=== PATIENT | male | born 1935 | race Caucasian/White ===

== ENCOUNTER → 2017-10-02 | Outpatient (CLI) | payer MEDICARE, OTHER ==
[~2017-10-02] MED LIST: BUSPAR15 MG PO; Z.0.ACTONEL150 MG PO; Z.0.BYSTOLIC10 MG PO; Z.0.BYSTOLIC5 MG PO; Z.0.DIOVAN160 MG PO; Z.0.DYAZIDE 37.5-21 PO; Z.0.FLOMAX0.4 MG PO; Z.0.NEXIUM40 MG PO; Z.0.PRADAXA150 MG PO; Z.0.PROSCAR5 MG PO; Z.0.SINGULAIR10 MG PO; Z.0.XYZAL5 MG PO; [UNRECOGNIZED DRUG - OTHER]
--- NOTE | 2017-10-02 14:28 | Diagnostic Imaging Report ---
PROCEDURE:X-RAY MODIFIED BARIUM SWALLOW COMPARISON:None. INDICATIONS:Not provided. DISCUSSION:Fluoroscopic examination was performed in conjunction with speech pathology, during swallowing of a variety of thin and thick liquid consistencies. Examination showed premature spillage over the base of the tongue, vallecula and pyriform sinuses with all consistencies. Penetration into the laryngeal vestibule was noted within liquids. No aspiration. Moderate to severe follicular, and pyriform sinus residue with thin and thick, pure and solid material. Moderate pharyngeal wall residue following swallows of all consistencies. CONCLUSION:Mild to moderate pharyngeal dysphagia. Intermittent penetration to the level of the vocal cords. No aspiration was documented, however, highly suspected. Please see the report from speech pathology for complete details. Livan Nguyen M.D. Dictated by: Livan Nguyen M.D. on 10/02/2017 at 14:35 Electronically approved by: Livan Nguyen M.D. on 10/02/2017 at 14:35
== END ==
LOC: DX 09:32
PROVIDERS: ATTEND Internal Medicine Gastroenterology
DX: R13.10 Dysphagia, unspecified (principal)
CPT/HCPCS: 74230; 92611; G8996; G8997

== ENCOUNTER → 2017-12-24 | Day surgery (SDC) | payer MEDICARE, OTHER ==
[2017-12-19 11:53] LABS: BASOPHILS % 0.2 % (0.0-1.0); EOSINOPHILS # (AUTO) 0.1 (0.0-0.4); EOSINOPHILS % 0.7 % (0.0-6.0); HEMATOCRIT 38.7 % (38.2-49.6); HEMOGLOBIN 13.1 g/dL (14.0-18.0); LYMPHOCYTES # (AUTO) 2.7 (1.0-3.2); LYMPHOCYTES % 17.6 % (18.0-39.1); MEAN CORPUSCULAR HEMOGLOBIN 30.4 pg (28-32); MEAN CORPUSCULAR HGB CONC 33.9 g/dL (31-35); MEAN CORPUSCULAR VOLUME 89.8 fL (81-99); MONOCYTES # (AUTO) 1.4 (0.2-0.8); NEUTROPHILS # (AUTO) 10.6 (2.1-6.9); NEUTROPHILS % 69.5 % (38.7-80.0); PLATELET COUNT 227 x10e3/uL (140-360); RED BLOOD COUNT 4.31 x10e6/uL (4.3-5.7); RED CELL DISTRIBUTION WIDTH 14.2 % (11.7-14.4)
[~2017-12-24] MED LIST changes: +ARNUITY ELLIPTA PO; +BELSOMRA PO; +BUDESONIDE EC3 MG PO; +CITRACAL + D E1 EACH PO; +DICYCLOMINE HCL10 MG PO; +FENTANYL CITRATE/PF 100MCG/2 ML INJ ONE; +FISH OIL 1,0001 EAC2 PO; +FLUTICASONE PRO16 GM; +LIDOCAINE HCL 2% LOCAL INJ 5 ML SDV VIAL INJ ONE; +MELATONIN 5 MG1 EAC1 PO; +NIFEDIPINE ER30 M1 PO; +PENTASA500 MG PO; +PROPOFOL IV EMULSION 10 MG/ML 50 ML VIAL ONE; +SOTALOL80 MG PO; +SPIRIVA18 MCG INH; +UNKOWN ABX PO
--- OUTSIDE RECORDS SUMMARY | 2017-12-24 06:09 | XMS REPORT | Summary of Care ---
Author Author GUILLE POPE M.D. Organization Unknown Address [facility] Phone Unavailable Care Team Providers Care Actuarial Science Professor Name Role Phone GUILLE POPE M.D. 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: Active 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.3, J32.3) Status: Active Medications Name Dates Details Colestipol HCl - 1 GM Oral Tablet Active BusPIRone HCl - 15 MG Oral Tablet * Refills: 0 Active Bystolic 5 MG Oral Tablet * Refills: 0 Active Finasteride 5 MG Oral Tablet * Refills: 0 Active NexIUM 40 MG Oral Capsule Delayed Release * Refills: 0 Active Sotalol HCl (AF) 120 MG Oral Tablet * Refills: 0 Active Triamterene-HCTZ 25-37.5 MG CAPS * Refills: 0 Active Pentasa CPCR * Refills: 0 Active Pradaxa 150 MG Oral Capsule * Refills: 0 Active Valsartan 80 MG Oral Tablet * Refills: 0 Active Montelukast Sodium 10 MG Oral Tablet * Refills: 0 Active Tamsulosin HCl - 0.4 MG Oral Capsule * Refills: 0 Active Levocetirizine Dihydrochloride TABS * Refills: 0 Active Dicyclomine HCl - 10 MG Oral Capsule * Refills: 0 Active Xopenex HFA 45 MCG/ACT Inhalation Aerosol * Refills: 0 Active Silenor TABS * Refills: 0 Active Eszopiclone 3 MG Oral Tablet * Refills: 0 Active Clarithromycin 500 MG Oral Tablet TAKE 1 TABLET EVERY 12 HOURS DAILY. * Quantity: 60 Refills: 0 GUILLE POPE M.D. Start : 04-Dec-2017 Active PredniSONE 10 MG Oral Tablet Take 6 tabs by mouth daily for 2 days then 5 tabs by mouth daily for 2 days then 4 tabs daily by mouth daily for 2 days then 3 tabs by mouth * Quantity: 42 Refills: 0 GUILLE POPE M.D. * Start : 04-Dec-2017 Active Fluticasone Propionate 50 MCG/ACT Nasal Suspension INSTILL 2 SPRAYS IN EACH NOSTRIL EVERY DAY * Quantity: 1 Refills: 4 GUILLE POPE M.D. * Start : 05-Dec-2017 Active 9.9 ML Bottle Allergies and Adverse Reactions Name Dates Details Penicillins (Allergy) Status: Active Past Medical History Name Dates Details History of arthritis (V13.4, Z87.39) Status: Resolved History of asthma (V12.69, Z87.09) Status: Resolved History of Depressive disorder (311, F32.9) Status: Resolved History of hypertension (V12.59, Z86.79) Status: Resolved Procedures Procedure Dates Details CT Sinus w/o contrast with sag recons [id number] Date: 27-Nov-2017 History of Heart Surgery Completed History of Biopsy Of Liver Completed Immunization Name Dates Details Immunizations not documented Family History Name Dates Details Family history of Allergy (995.3, T78.40XA) Comments: Family History Status: Active Social History Name Dates Details - Status: Name Dates Details Never smoker Vital Signs Date Test Result Details [id number] BP Systolic 182 mm[Hg] Status: BP Diastolic 70 mm[Hg] Status: Height 69 in Status: Weight 149 lb Status: Body Mass Index Calculated 22 kg/m2 Status: Body Surface Area Calculated 1.82 m2 Status: Temperature 97.5 f Status: Heart Rate 57 /min Status: 75-Uuz-83384:33 BP Systolic 178 mm[Hg] Status: BP Diastolic 84 mm[Hg] Status: Height 69 in Status: Weight 142 lb Status: Body Mass Index Calculated 20.97 kg/m2 Status: Body Surface Area Calculated 1.79 m2 Status: Heart Rate 54 /min Status: Results Date Description Value Details Results not documented Plan of Care Name Dates Details Planned Observations Planned Goals not documented Planned Encounters Appointment; GUILLE POPE M.D. On: 18-Jan-2018 14:45 Interventions Provided Medication Changes* Clarithromycin 500 MG Oral Tablet - Start * PredniSONE 10 MG Oral Tablet - Start Plan* 1. Will begin Biaxin for 4 weeks, steroid burst taper and continue on the Flonase daily. Fu in 4 weeks. Instructions Name Dates Details Instructions not documented Encounters Appointment; GUILLE POPE M.D. Encounter Diagnosis: Problem not documented On: 21-Jan-2016 8:30 Appointment; GUILLE POPE M.D. Encounter Diagnosis: Problem not documented On: 21-Jul-2016 9:00 Appointment; GUILLE POPE M.D. Encounter Diagnosis: Problem not documented On: 19-Jan-2017 9:30 Appointment; GUILLE POPE M.D. Encounter Diagnosis: Problem not documented On: 20-Jul-2017 9:30 Appointment; GUILLE POPE M.D. Encounter Diagnosis: Problem not documented On: 27-Nov-2017 9:30 Appointment; GUILLE POPE M.D. Encounter Diagnosis: Problem not documented On: 04-Dec-2017 15:45
--- OUTSIDE RECORDS SUMMARY | 2017-12-24 06:09 | XMS REPORT ---
Author Author [facility] Address Unknown Phone Unavailable Care Team Providers Care Outreach Manager Name Role Phone CLAIRE CHAVEZ Unavailable Unavailable Problems This patient has no known problems. Allergies, Adverse Reactions, Alerts This patient has no known allergies or adverse reactions. Medications This patient has no known medications. Results Test Description Test Time Test Comments Text Results Atomic Results Result Comments MODIFIED BA. SWALLOW [place] [address] Patient Name: HELENA MAURO MR #: [id number] : 1935 Age/Sex: 82/M Req #: [id number] Adm Physician: Ordered by: CLAIRE CHAVEZ MD Report #: [id number] Location: DX Room/Bed: Procedure: [id number] DX/MODIFIED BA. SWALLOW Exam Date: 10/02/17 Exam Time: 1000 REPORT STATUS: Signed PROCEDURE: X-RAY MODIFIED BARIUM SWALLOW COMPARISON: None. INDICATIONS: Not provided. DISCUSSION: Fluoroscopic examination was performed in conjunction with speech pathology, during swallowing of a variety of thin and thick liquid consistencies. Examination showed premature spillage over the base of the tongue, vallecula and pyriform sinuses with all consistencies. Penetration into the laryngeal vestibule was noted within liquids. No aspiration. Moderate to severe follicular, and pyriform sinus residue with thin and thick , pur e and solid material. Moderate pharyngeal wall residue following swallows of all consistencies. CONCLUSION: Mild to moderate pharyngeal dysphagia. Intermittent penetration to the level of the vocal cords. No aspiration was documented, however, highly suspected. Please see the report from speech pathology for complete details. Fidelia Nguyen M.D. Dictated by: Fidelia Nguyen M.D. on 10/02/2017 at 14: 35 Electronically approved by: Fidelia Nguyen M.D. on 10/02/2017 at 14:35 Dictated By: FIDELIA NGUYEN MD [id number] Transcribed By: BETHANY on 10/02/17 1435 COPY TO: CLAIRE CHAVEZ MD
[2017-12-24 06:35] LABS: BASOPHILS % 0.2 % (0.0-1.0); EOSINOPHILS # (AUTO) 0.1 (0.0-0.4); EOSINOPHILS % 0.7 % (0.0-6.0); HEMATOCRIT 36.5 % (38.2-49.6); HEMOGLOBIN 12.5 g/dL (14.0-18.0); LYMPHOCYTES # (AUTO) 2.1 (1.0-3.2); LYMPHOCYTES % 17.6 % (18.0-39.1); MEAN CORPUSCULAR HEMOGLOBIN 30.2 pg (28-32); MEAN CORPUSCULAR HGB CONC 34.2 g/dL (31-35); MEAN CORPUSCULAR VOLUME 88.2 fL (81-99); MONOCYTES % 8.6 % (4.4-11.3); NEUTROPHILS # (AUTO) 8.4 (2.1-6.9); NEUTROPHILS % 71.4 % (38.7-80.0); PLATELET COUNT 198 x10e3/uL (140-360); RED BLOOD COUNT 4.14 x10e6/uL (4.3-5.7); RED CELL DISTRIBUTION WIDTH 14.2 % (11.7-14.4)
--- NOTE | 2017-12-25 08:11 | Operative Report ---
DATE OF PROCEDURE: December 24, 2017 PROCEDURE PERFORMED: Esophagogastroduodenoscopy with biopsies and esophageal dilatation. REFERRING PHYSICIAN: Dr. Carloz Kennedy INDICATIONS FOR EGD: Dysphagia to solids. MEDICATION: Patient was done under MAC. Please see anesthesiologist note. PROCEDURE IN DETAIL: With the patient in left lateral decubitus position, flexible fiberoptic Olympus gastroscope was introduced into the esophagus under direct visualization without any difficulty. There was a mild stricture noted in the cervical esophagus just below the upper esophageal sphincter and that was dilated to size 50-[place] Leyva. There was some patchy erythema noted in distal esophagus. The scope was then advanced with ease into the stomach and a moderate amount of retained undigested food was noted in the stomach. An approximately 1-cm polypoid lesion was noted in the body of the stomach and that was biopsied. There was some patchy erythema noted in the antrum and the body, and biopsies were obtained and sent to stain for H. pylori. The pylorus was of normal contour and shape, it was intubated with ease and the scope was advanced all the way to the second portion of the duodenum. The scope was then withdrawn slowly. Mucosa overlying the proximal second portion and the duodenal bulb appeared to be within normal limits. The scope was then withdrawn back into the stomach and retroflexed, and the mucosa overlying the fundus and the cardia appeared to be within normal limits. The scope was then straightened out. The stomach was decompressed. The scope was subsequently withdrawn. Patient tolerated the procedure well. IMPRESSION: 1. 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 2. Gastritis, biopsied. Biopsy sent to stain for Helicobacter pylori. 3. Gastric polyp, approximately 1 cm, body, biopsied. 4. Gastroparesis, reflected by retained undigested food in stomach. PLAN: Follow up histology. Continue Nexium 40 mg 1 p.o. a.c. b.i.d. Job#: [id number] cc:CARLOZ KENNEDY MD
== END | disposition home or self-care (01) ==
LOC: OR 06:07
PROVIDERS: ATTEND Internal Medicine Gastroenterology
DX: K22.2 Esophageal obstruction (principal); K31.7 Polyp of stomach and duodenum; K29.50 Unspecified chronic gastritis without bleeding; K31.84 Gastroparesis; K20.9 Esophagitis, unspecified; K21.9 Gastro-esophageal reflux disease without esophagitis; K44.9 Diaphragmatic hernia without obstruction or gangrene; K58.9 Irritable bowel syndrome, unspecified; R19.7 Diarrhea, unspecified; J45.909 Unspecified asthma, uncomplicated; G47.33 Obstructive sleep apnea (adult) (pediatric); I10 Essential (primary) hypertension; I48.91 Unspecified atrial fibrillation; H91.90 Unspecified hearing loss, unspecified ear; F32.9 Major depressive disorder, single episode, unspecified; F41.9 Anxiety disorder, unspecified; Z01.810 Encounter for preprocedural cardiovascular examination; Z01.812 Encounter for preprocedural laboratory examination; Z79.02 Long term (current) use of antithrombotics/antiplatelets; Z87.442 Personal history of urinary calculi
CPT/HCPCS: 36415 ×2; 43239; 43450; 85025 ×2; 88305; 88312; 93005; J2001

== ENCOUNTER 2018-01-08 14:00 | Outpatient (RCR) | payer MEDICARE, OTHER ==
[~2018-01-08 14:00] MED LIST changes: -FENTANYL CITRATE/PF 100MCG/2 ML INJ ONE; -LIDOCAINE HCL 2% LOCAL INJ 5 ML SDV VIAL INJ ONE; -PROPOFOL IV EMULSION 10 MG/ML 50 ML VIAL ONE
== END 2018-01-12 ==
LOC: ST 14:00
PROVIDERS: ATTEND Internal Medicine Gastroenterology
DX: R13.10 Dysphagia, unspecified (principal)
CPT/HCPCS: 92526 ×6; 92610; G8996; G8997

== ENCOUNTER 2018-01-25 13:00 | Outpatient (RCR) | payer MEDICARE, OTHER | END 2018-02-11 | LOC: ST 13:00 | PROVIDERS: ATTEND Internal Medicine Gastroenterology | DX: R13.13 Dysphagia, pharyngeal phase (principal); K21.9 Gastro-esophageal reflux disease without esophagitis | CPT/HCPCS: 92526 ×5; G8996; G8997 ==

== ENCOUNTER → 2018-02-04 | Outpatient (CLI) | payer MEDICARE, OTHER ==
--- NOTE | 2018-02-04 14:20 | Diagnostic Imaging Report ---
PROCEDURE:X-RAY MODIFIED BARIUM SWALLOW COMPARISON:None. INDICATIONS:Dysphasia. DISCUSSION:Fluoroscopic examination was performed in conjunction with speech pathology, during swallowing of a variety of thin and thick liquid consistencies. CONCLUSION: No penetration or aspiration. Please see the report from speech pathology for complete details. Dictated by: Ck Cool M.D. on 02/04/2018 at 14:21 Electronically approved by: Ck Cool M.D. on 02/04/2018 at 14:21
== END ==
LOC: DX 10:36
PROVIDERS: ATTEND Internal Medicine Gastroenterology
DX: R13.10 Dysphagia, unspecified (principal); K21.9 Gastro-esophageal reflux disease without esophagitis
CPT/HCPCS: 74230; 92611; G8996; G8997; G8998

== ENCOUNTER → 2019-06-04 | Outpatient (CLI) | payer MEDICARE, OTHER ==
[~2019-06-04] MED LIST changes: +AZELASTINE HCL6 ML INH; +COLESTIPOL HCL1 GM PO; +ELIQUIS PO; +FUROSEMIDE40 MG PO; +NEXIUM40 MG PO; +PROAIR HFA INH8.5 GM INH; +PULMICORT90 MCG/AER INH; +SODIUM CHLORIDE3 ML PO
[2019-06-04 10:51] LABS: BASOPHILS % 0.6 % (0.0-1.0); EOSINOPHILS # (AUTO) 0.2 (0.0-0.4); EOSINOPHILS % 2.4 % (0.0-6.0); HEMATOCRIT 23.9 % (38.2-49.6); HEMOGLOBIN 7.4 g/dL (14.0-18.0); LYMPHOCYTES % 16.4 % (18.0-39.1); MEAN CORPUSCULAR HEMOGLOBIN 28.6 pg (28-32); MEAN CORPUSCULAR VOLUME 92.3 fL (81-99); MONOCYTES # (AUTO) 0.6 (0.2-0.8); MONOCYTES % 8.9 % (4.4-11.3); NEUTROPHILS # (AUTO) 4.5 (2.1-6.9); NEUTROPHILS % 71.2 % (38.7-80.0); PLATELET COUNT 284 x10e3/uL (140-360); RED BLOOD COUNT 2.59 x10e6/uL (4.3-5.7); RED CELL DISTRIBUTION WIDTH 14.7 % (11.7-14.4)
== END ==
LOC: LAB 10:30
PROVIDERS: ATTEND Family Medicine
DX: D64.9 Anemia, unspecified (principal)
CPT/HCPCS: 36415; 85025

== ENCOUNTER → 2019-07-08 | Day surgery (SDC) | payer MEDICARE, OTHER ==
[2019-07-01 16:56] LABS: BASOPHILS # (AUTO) 0.1 (0.0-0.1); BASOPHILS % 0.7 % (0.0-1.0); EOSINOPHILS # (AUTO) 0.3 (0.0-0.4); EOSINOPHILS % 4.2 % (0.0-6.0); HEMATOCRIT 35.3 % (38.2-49.6); HEMOGLOBIN 11.4 g/dL (14.0-18.0); LYMPHOCYTES # (AUTO) 1.6 (1.0-3.2); LYMPHOCYTES % 23.1 % (18.0-39.1); MEAN CORPUSCULAR HEMOGLOBIN 29.4 pg (28-32); MEAN CORPUSCULAR HGB CONC 32.3 g/dL (31-35); MONOCYTES # (AUTO) 0.7 (0.2-0.8); MONOCYTES % 9.9 % (4.4-11.3); NEUTROPHILS # (AUTO) 4.3 (2.1-6.9); NEUTROPHILS % 61.1 % (38.7-80.0); PLATELET COUNT 232 x10e3/uL (140-360); RED BLOOD COUNT 3.88 x10e6/uL (4.3-5.7); RED CELL DISTRIBUTION WIDTH 15.3 % (11.7-14.4)
[~2019-07-08] MED LIST changes: +FENTANYL CITRATE/PF 100MCG/2 ML INJ ONE; +PROPOFOL IV EMULSION 10 MG/ML 50 ML VIAL ONE
--- OUTSIDE RECORDS SUMMARY | 2019-07-08 11:06 | XMS REPORT | Continuity of Care Document ---
Author Author [email or web address] Organization [email or web address] Address Unknown Phone Unavailable Care Team Providers Care Brush Polisher Name Role Phone Dympol Information TranscribeMe Unavailable Unavailable Problems Problem Status Onset Date Classification Date Reported Comments Source Nasal congestion 12/07/2017 03/11/2018 [facility] [place] R09.81 - NASAL CONGESTION Active 11/28/2017 [facility] [place] Dysphagia, oropharyngeal phase 11/14/2017 02/15/2018 [facility] [place] Chronic sinusitis, unspecified 03/11/2018 [facility] [place] Chronic sphenoidal sinusitis 02/15/2018 [facility] [place] Chronic frontal sinusitis 02/15/2018 [facility] [place] Chronic maxillary sinusitis 02/15/2018 [facility] [place] Asthma (disorder) Resolved Problem 02/23/2019 [facility] Atrial fibrillation (disorder) Resolved Problem 02/23/2019 [facility] Benign prostatic hypertroph without outflow obstruction (disorder) Resolved Problem 02/23/2019 [facility] Cardiac arrhythmia (disorder) Resolved Problem 02/23/2019 [facility] Deviated nasal septum (disorder) Resolved Problem 02/23/2019 [facility] Diverticulosis of colon Resolved Problem 02/23/2019 [facility] Erectile dysfunction co-occurrent and due to arterial insufficiency (disorder) Resolved Problem 02/23/2019 [facility] Gastric ulcer (disorder) Resolved Problem 02/23/2019 [facility] Gastroesophageal reflux disease (disorder) Resolved Problem 02/23/2019 [facility] Hearing loss (finding) Resolved Problem 02/23/2019 [facility] Hypertensive disorder, systemic arterial (disorder) Resolved Problem 02/23/2019 [facility] Impotence of organic origin (disorder) Resolved Problem 02/23/2019 [facility] Major depressive disorder (disorder) Resolved Problem 02/23/2019 [facility] Reduced libido (finding) Resolved Problem 02/23/2019 [facility] Sleep apnea (finding) Resolved Problem 02/23/2019 [facility] Medications Medication Details Route Status Patient Instructions Ordering Provider Order Date Source finasteride 5 mg oral tablet See Instructions, TAKE 1 TABLET BY MOUTH EVERY DAY, # 90 tab, 4 Refill(s), KWAN, Pharmacy: [facility] [id number] Active 02/20/2019 [facility] tamsulosin 0.4 mg oral capsule 0.4 mg=1 cap, PO, Daily, # 90 cap, 3 Refill(s), Pharmacy: [place] [id number] Active 01/29/2019 [facility] irbesartan 150 mg oral tablet 150 mg=1 tab, PO, Daily, 0 Refill(s) Active 01/29/2019 [facility] apixaban 5 MG Oral Tablet [Eliquis] 5 mg, PO, Q12H, 0 Refill(s) Active 01/29/2019 [facility] Esomeprazole 40 MG Enteric Coated Capsule 40 mg=1 cap, PO, Daily, 0 Refill(s) Active 01/29/2019 [facility] nebivolol 5 MG Oral Tablet [Bystolic] 5 mg=1 tab, PO, Daily, 0 Refill(s) Active 01/29/2019 [facility] fluticasone propionate 55 mcg/inh inhalation powder INHALATION, Q12H, 0 Refill(s) Active 01/29/2019 [facility] dicyclomine 10 mg oral capsule 20 mg=2 cap, PO, QID, 0 Refill(s) Active 01/29/2019 [facility] montelukast 10 mg oral tablet 10 mg=1 tab, PO, Daily, 0 Refill(s) Active 01/29/2019 [facility] Sodium Chloride 0 Refill(s) Active 01/29/2019 [facility] Colestipol Hydrochloride 1000 MG Oral Tablet 2 gm=2 tab, PO, BID, 0 Refill(s) Active 01/29/2019 [facility] Arnuity Ellipta furoate 200 mcg inhalation powder INHALATION, Q24H, 0 Refill(s) Active 01/29/2019 [facility] budesonide 3 mg oral delayed release capsule 9 mg=3 cap, PO, QAM, 0 Refill(s) Active 01/29/2019 [facility] busPIRone 15 mg oral tablet 15 mg=1 tab, PO, BID, 0 Refill(s) Active 01/29/2019 [facility] azelastine NASAL, BID, 0 Refill(s) Active 01/29/2019 [facility] tamsulosin 0.4 mg oral capsule 0.4 mg=1 cap, PO, Daily, 0 Refill(s) Inactive 01/29/2019 [facility] sotalol 160 mg oral tablet 160 mg=1 tab, PO, BID, 0 Refill(s) Active 01/29/2019 [facility] finasteride 5 mg oral tablet 5 mg=1 tab, PO, Daily, 0 Refill(s) Active 01/29/2019 [facility] NIFEdipine 30 mg oral tablet, extended release 30 mg=1 tab, PO, Daily, 0 Refill(s) Active 01/29/2019 [facility] Spiriva 18 microgram, INHALATION, Daily, # 30 ea, 0 Refill(s) Active 01/29/2019 [facility] 120 ACTUAT Budesonide 0.16 MG/ACTUAT Dry Powder Inhaler [Pulmicort] INHALATION, BID, 0 Refill(s) Active 01/29/2019 [facility] mesalamine 500 MG Extended Release Capsule [Pentasa] 500 mg=1 cap, PO, QID, # 120 cap, 0 Refill(s) Active 01/29/2019 [facility] Levocetirizine Dihydrochloride (Xyzal) 5 Mg Tablet, 5 Mg Oral Daily Active 12/24/2017 [facility] Nebivolol Hcl (Bystolic) 10 Mg Tablet, 10 Mg Oral Daily Active 12/24/2017 [facility] Satalol , 120 Mg Active 12/24/2017 [facility] Risedronate Sodium (Actonel) 150 Mg Tablet, 150 Mg Oral Daily Active 12/19/2017 [facility] Arnuity Ellipta Daily Active [facility] Belsomra Bedtime Active [facility] Budesonide (Budesonide Ec) 3 Mg Capdr...er Daily Active [facility] Buspirone Hcl (Buspar) 15 Mg Tablet Daily Active [facility] Calcium Carb & Cit/Vitamin D3 (Citracal + D Er Tablet) 1 Each Tablet.er Daily Active [facility] Dabigatran Etexilate Mesylate (Pradaxa) 150 Mg Capsule Twice A Day Active [facility] Dicyclomine Hcl 10 Mg Capsule As Needed Active [facility] Esomeprazole Mag Trihydrate (Nexium) 40 Mg Capsule.dr Twice A Day Active [facility] Finasteride (Proscar) 5 Mg Tablet Daily Active [facility] Fluticasone Propionate 16 Gm Harcourt.susp As Needed Active [facility] Melatonin/Pyridoxine Hcl (B6) (Melatonin 5 Mg Tablet) 1 Each Tablet Bedtime Active [facility] Mesalamine (Pentasa) 500 Mg Capcr Twice A Day Active [facility] Montelukast Sodium (Singulair) 10 Mg Tablet Daily Active [facility] Nebivolol Hcl (Bystolic) 5 Mg Tablet Daily Active [facility] Nifedipine (Nifedipine Er) 30 Mg Tab.er.24 Daily Active [facility] Arbon-3 Fatty Acids/Fish Oil (Fish Oil 1,000 Mg Capsule) 1 Each Capsule Daily Active [facility] Sotalol Hcl (Sotalol) 80 Mg Tablet Twice A Day Active [facility] Tamsulosin Hcl (Flomax) 0.4 Mg Cap.sr.24h Daily Active [facility] Tiotropium Twining (Spiriva) 18 Mcg Cap.w.dev Twice A Day Active [facility] Triamterene/Hydrochlorothiazid (Dyazide 37.5-25 Capsule) 1 Each Capsule Daily Active [facility] Unkown Abx Daily Active [facility] Valsartan (Diovan) 160 Mg Tablet Daily Active [facility] Allergies, Adverse Reactions, Alerts Substance Category Reaction Severity Reaction type Status Date Reported Comments Source Penicillin HOT FLASHES Mild Allergy to Substance Active 11/02/2009 [facility] penicillins Assertion Drug allergy Active [facility] Immunizations No Data Provided for This Section Results Order Name Results Value Reference Range Date Interpretation Comments Source Automated blood basophil count (count/volume) Automated blood basophil count (count/volume) 0.0 0.0 - 0.1 12/24/2017 [facility] Automated blood basophil count as percentage of total leukocytes Automated blood basophil count as percentage of total leukocytes 0.2 0.0 - 1.0 12/24/2017 [facility] Automated blood eosinophil count Automated blood eosinophil count 0.1 0.0 - 0.4 12/24/2017 [facility] Automated blood eosinophil count as percentage of total leukocytes Automated blood eosinophil count as percentage of total leukocytes 0.7 0.0 - 6.0 12/24/2017 [facility] Automated blood hematocrit (volume fraction) Automated blood hematocrit (volume fraction) 36.5 38.2 - 49.6 12/24/2017 [facility] Automated blood lymphocyte count as percentage ot total leukocytes Automated blood lymphocyte count as percentage ot total leukocytes 17.6 18.0 - 39.1 12/24/2017 [facility] Automated blood monocyte count as percentage of total leukocytes Automated blood monocyte count as percentage of total leukocytes 8.6 4.4 - 11.3 12/24/2017 [facility] Automated blood neutrophil count Automated blood neutrophil count 8.4 2.1 - 6.9 12/24/2017 [facility] Automated blood platelet count (count/volume) Automated blood platelet count (count/volume) 198 140 - 360 12/24/2017 [facility] Automated blood segmented neutrophil count as percentage of total leukocytes Automated blood segmented neutrophil count as percentage of total leukocytes 71.4 38.7 - 80.0 12/24/2017 [facility] Automated erythrocyte mean corpuscular hemoglobin (mass per erythrocyte) Automated erythrocyte mean corpuscular hemoglobin (mass per erythrocyte) 30.2 28 - 32 12/24/2017 [facility] Automated erythrocyte mean corpuscular hemoglobin concentration measurement (mass/volume) Automated erythrocyte mean corpuscular hemoglobin concentration measurement (mass/volume) 34.2 31 - 35 12/24/2017 [facility] Automated erythrocyte mean corpuscular volume Automated erythrocyte mean corpuscular volume 88.2 81 - 99 12/24/2017 [facility] Blood erythrocytes automated count (number/volume) Blood erythrocytes automated count (number/volume) 4.14 4.3 - 5.7 12/24/2017 [facility] Blood hemoglobin measurement (moles/volume) Blood hemoglobin measurement (moles/volume) 12.5 14.0 - 18.0 12/24/2017 [facility] Blood leukocytes automated count (number/volume) Blood leukocytes automated count (number/volume) 11.69 4.8 - 10.8 12/24/2017 [facility] Blood lymphocytes count (number/volume) Blood lymphocytes count (number/volume) 2.1 1.0 - 3.2 12/24/2017 [facility] Blood monocytes automated count (number/volume) Blood monocytes automated count (number/volume) 1.0 0.2 - 0.8 12/24/2017 [facility] Red Cell Distribution Width 14.2 11.7 - 14.4 12/24/2017 [facility] IM GRANULOCYTES % 1.5 0.0 - 1.0 12/24/2017 [facility] Absolute Immature Granulocyte (auto 0.17 0 - 0.1 12/24/2017 [facility] Pathology Reports No Data Provided for This Section Diagnostic Reports Report Value Date Source Sinus wo contrast CT EXAM: SINUS CT WITHOUT CONTRAST DATE: 12/03/2017 11:39 AM [employer] ORDERING PHYSICIAN: Julio Melton MD CLINICAL INDICATION: - R09.81 Nasal congestion; TECHNIQUE: Thin section axial images are obtained from skull base through vertex ([place]) without IV contrast. Axial, sagittal, and coronal images are interpreted. This exam was performed according to our departmental dose-optimization protocol, which includes automated exposure control, adjustment of the mA and/or kV according to patient size and/or use of iterative reconstruction technique. Dose: DLP 121 mGy-cm COMPARISON: Unavailable FINDINGS: Frontal sinuses: Near-complete opacification of the right side with occluded recess. Left side is clear with patent recesses Ethmoid sinuses: Right anterior and left posterior mucosal thickening. Infundibula are patent. Sphenoid sinuses: Diffusely opacified with occluded recesses Maxillary sinuses: Right-sided diffusely opacified with occluded drainage pathway. Left side is clear with patent drainage pathway Nasal airway: 6 mm rightward spurring and deviation of the nasal septum Mastoids: Clear mastoids and middle ear cavities Soft tissues: No focal abnormalities identified on limited, noncontrast evaluation There is high-density material within the central sphenoid, right frontal, and right maxillary antra IMPRESSION: 1. Multifocal severe chronic paranasal sinusitis without drainage obstruction 2. No air-fluid levels 3. High density material within the right frontal, sphenoid, maxillary antra likely reflects inspissated secretion. Fungal colonization is thought less likely. 12/03/2017 JOD[facility] Saleh Consultation Notes No Data Provided for This Section Discharge Summaries No Data Provided for This Section History and Physicals No Data Provided for This Section Vital Signs No Data Provided for This Section Encounters Location Location Details Encounter Type Encounter Number Reason For Visit Attending Provider ADM Date DC Date Status Source Registered Clinic [id number] CLAIRE CHAVEZ MD 10/02/2017 [facility] [place] [facility] [id number] Edd Mae 11/09/2017 11/10/2017 JODIE Saleh [facility] [place] [facility] [id number] Julio Melton 12/03/2017 12/04/2017 [facility] [id number] CLAIRE CHAVEZ MD 12/24/2017 [facility] Discharged Recurring [id number] CLAIRE CHAVEZ MD 12/25/2017 01/12/2018 [facility] Discharged Recurring [id number] CLAIRE CHAVEZ MD 01/25/2018 02/11/2018 [facility] Registered Clinic [id number] CLAIRE CHAVEZ MD 02/04/2018 [facility] Outpatient [id number] Mani Bynumen 01/29/2019 01/30/2019 [facility] [place] Phone Message [id number] 02/20/2019 02/22/2019 [facility] Procedures Procedure Code Date Perfomer Comments Source Complex uroflowmetry (eg, calibrated electronic equipment) 07438 01/29/2019 [facility] Measurement of post-voiding residual urine and/or bladder capacity by ultrasound, non-imaging 26007 01/29/2019 [facility] EGD BIOPSY SINGLE/MULTIPLE 22711 12/24/2017 [facility] DILATE ESOPHAGUS 1/MULT PASS 09572 12/24/2017 [facility] Carpal tunnel release [id number] Medical [facility] Assessment and Plan No Data Provided for This Section Plan of Care Plan of Care Date Source Current inpatient/outpatient. The plan of care is currently unavailable. 02/12/2018 [facility] Social History Social History Date Source Social History TypeResponse Smoking Status Never smoker; Exposure to Tobacco Smoke None; Cigarette Smoking Last 365 Days No; Reg Smoking Cessation Counseling No entered on: 01/29/19 01/29/2019 [facility] Social History Problem Response Recorded Date/Time Onset Date Status Hx Psychiatric Problems Yes 10/29/2012 2:53pm Not Applicable Not Applicable Hx Eating Disorder No 10/20/2011 2:05pm Not Applicable Not Applicable Hx Substance Use Disorder No 10/20/2011 2:05pm Not Applicable Not Applicable Hx Depression No 10/20/2011 2:05pm Not Applicable Not Applicable Hx Alcohol Use No 10/20/2011 2:05pm Not Applicable Not Applicable Hx Substance Use Treatment No 10/20/2011 2:05pm Not Applicable Not Applicable Hx Physical Abuse No 10/20/2011 2:05pm Not Applicable Not Applicable 02/12/2018 [facility] No data available for this section 12/04/2017 [facility] [place] Family History No Data Provided for This Section Advance Directives Order Name Results Value Date Source Advance Directives Advance Directives Directive Response Recorded Date/Time Does the patient have an advance directive? Yes 10/29/12 2:53pm If yes, is advance directive on file with [facility]? No 10/29/12 2:53pm If not on file with [facility] will patient provide a copy? No 02/04/18 10:35am Do you have a Directive to Physician? Yes 02/04/18 10:35am Do you have a Medical Power of Credit Union Examiner? Yes 02/04/18 10:35am Do you have an out of hospital Do Not Resuscitate Order? No 02/04/18 10:35am Do you have any special needs we should be aware of? No 02/04/18 10:35am Do you have a support person here with you today? No 02/04/18 10:35am Did patient receive Notice of Privacy Practices? Yes 02/04/18 10:35am Did patient receive patient rights and responsibilities? Yes 02/04/18 10:35am 02/12/2018 [facility] Functional Status No Data Provided for This Section
--- OUTSIDE RECORDS SUMMARY | 2019-07-08 11:06 | XMS REPORT | Summary of Care ---
Author Author [facility] Organization [facility] U[facility] Address Unknown Phone Unavailable Encounter MICHEAL [place](FIN) [id number] Date(s): 02/20/19 - 02/21/19 [facility] Urology [address] [address]- [phone] Vital Signs No data available for this section Problem List Condition Effective Dates Status Health Status Informant Asthma(Confirmed) Resolved Atrial Resolved fibrillation(Confirm ed) BPH without Resolved obstruction/lower urinary tract symptoms(Confirmed) Cardiac Resolved dysrhythmia(Confirme d) Deviated nasal Resolved septum(Confirmed) Diverticula of Resolved colon(Confirmed) Erectile dysfunction Resolved due to arterial insufficiency(Confir med) Stomach Resolved ulcer(Confirmed) GERD Resolved (gastroesophageal reflux disease)(Confirmed) HL (hearing Resolved loss)(Confirmed) HTN Resolved (hypertension)(Confi rmed) Impotence, Resolved organic(Confirmed) Depression, Resolved major(Confirmed) Decreased Resolved libido(Confirmed) Apnea, Resolved sleep(Confirmed) Allergies, Adverse Reactions, Alerts Substance Reaction Severity Status penicillins Active Medications finasteride 5 mg oral tablet See Instructions, TAKE 1 TABLET BY MOUTH EVERY DAY, # 90 tab, 4 Refill(s)KWAN, [facility] [id number] Start Date: 02/20/19 Status: Ordered Results No data available for this section Immunizations No data available for this section Procedures Procedure Date Related Diagnosis Body Site Status Carpal tunnel release Completed Social History Social History Type Response Smoking Status Never smoker; Exposure to Tobacco Smoke None; Cigarette Smoking Last 365 Days No; Reg Smoking Cessation Counseling No entered on: 01/29/19 Assessment and Plan No data available for this section
--- OUTSIDE RECORDS SUMMARY | 2019-07-08 11:06 | XMS REPORT | Summary of Care ---
Author Author [facility] Organization [facility] U[facility] Address Unknown Phone Unavailable Encounter MICHEAL [place](JAXON) [id number] Date(s): 01/29/19 - 01/29/19 [facility] Urology [address] [phone] Discharge Disposition: Home or Self Care Attending Physician: Mani Reed MD Vital Signs No data available for this [...] Substance Reaction Severity Status penicillins Active Medications Arnuity Ellipta furoate 200 mcg inhalation powder INHALATION, Q24H, 0 Refill(s) Start Date: 01/29/19 Status: Ordered azelastine nasal NASAL, BID, 0 Refill(s) Start Date: 01/29/19 Status: Ordered budesonide 3 mg oral delayed release capsule 9 mg=3 cap, PO, QAM, 0 Refill(s) Start Date: 01/29/19 Status: Ordered busPIRone 15 mg oral tablet 15 mg=1 tab, PO, BID, 0 Refill(s) Start Date: 01/29/19 Status: Ordered Bystolic 5 mg oral tablet 5 mg=1 tab, PO, Daily, 0 Refill(s) Start Date: 01/29/19 Status: Ordered colestipol 1 g oral tablet 2 gm=2 tab, PO, BID, 0 Refill(s) Start Date: 01/29/19 Status: Ordered dicyclomine 10 mg oral capsule 20 mg=2 cap, PO, QID, 0 Refill(s) Start Date: 01/29/19 Status: Ordered Eliquis 5 mg oral tablet 5 mg, PO, Q12H, 0 Refill(s) Start Date: 01/29/19 Status: Ordered esomeprazole 40 mg oral delayed release capsule 40 mg=1 cap, PO, Daily, 0 Refill(s) Start Date: 01/29/19 Status: Ordered finasteride 5 mg oral tablet 5 mg=1 tab, PO, Daily, 0 Refill(s) Start Date: 01/29/19 Status: Ordered fluticasone propionate 55 mcg/inh inhalation powder INHALATION, Q12H, 0 Refill(s) Start Date: 01/29/19 Status: Ordered irbesartan 150 mg oral tablet 150 mg=1 tab, PO, Daily, 0 Refill(s) Start Date: 01/29/19 Status: Ordered montelukast 10 mg oral tablet 10 mg=1 tab, PO, Daily, 0 Refill(s) Start Date: 01/29/19 Status: Ordered NIFEdipine 30 mg oral tablet, extended release 30 mg=1 tab, PO, Daily, 0 Refill(s) Start Date: 01/29/19 Status: Ordered Pentasa 500 mg oral capsule, extended release 500 mg=1 cap, PO, QID, # 120 cap, 0 Refill(s) Start Date: 01/29/19 Status: Ordered Pulmicort Flexhaler 180 mcg/inh inhalation powder INHALATION, BID, 0 Refill(s) Start Date: 01/29/19 Status: Ordered sodium chloride 0 Refill(s) Start Date: 01/29/19 Status: Ordered sotalol 160 mg oral tablet 160 mg=1 tab, PO, BID, 0 Refill(s) Start Date: 01/29/19 Status: Ordered Spiriva 18 microgram, INHALATION, Daily, # 30 ea, 0 Refill(s) Start Date: 01/29/19 Status: Ordered tamsulosin 0.4 mg oral capsule 0.4 mg=1 cap, PO, Daily, # 90 cap, 3 Refill(s), [facility]acy: [facility] [place] [id number] Start Date: 01/29/19 Status: Ordered tamsulosin 0.4 mg oral capsule 0.4 mg=1 cap, PO, Daily, 0 Refill(s) Start Date: 01/29/19 Stop Date: 01/29/19 Status: Discontinued Results No data available for this section Immunizations No data available for this section Procedures Procedure Date Related Diagnosis Body Site Status Complex uroflowmetry (eg, calibrated 01/29/19 Completed electronic equipment) Measurement of post-voiding residual urine 01/29/19 Completed and/or bladder capacity by ultrasound, non-imaging Carpal tunnel release Completed Social History Social History Type Response Smoking Status Never smoker; Exposure to Tobacco Smoke None; Cigarette Smoking Last 365 Days No; Reg Smoking Cessation Counseling No entered on: 01/29/19 Assessment and Plan No data available for this section
--- OUTSIDE RECORDS SUMMARY | 2019-07-08 11:06 | XMS REPORT | Summary of Care ---
Author Author [facility] [place] Organization [facility] [place] Address Unknown Phone Unavailable Encounter HQ [email or web address]_[email or web address](FIN) [phone] Date(s): 11/09/17 - 11/09/17 [facility] [place] [address] [place] [phone] Encounter Diagnosis Dysphagia, oropharyngeal phase (Final) - 11/13/17 Chronic sphenoidal sinusitis (Final) - Chronic frontal sinusitis (Final) - Chronic maxillary sinusitis (Final) - Discharge Disposition: Home or Self Care Attending Physician: Edd Mae MD Vital Signs No data available for this section Problem List No data available for this section Allergies, Adverse Reactions, Alerts No data available for this section Medications No data available for this section Results No data available for this section Immunizations No data available for this section Procedures No data available for this section Social History No data available for this section Assessment and Plan No data available for this section
--- OUTSIDE RECORDS SUMMARY | 2019-07-08 11:06 | XMS REPORT | Summary of Care ---
Author Author [facility] [place] Organization [facility] [place] Address Unknown Phone Unavailable Encounter HQ [email or web address](FIN) [phone] Date(s): 12/03/17 - 12/03/[address] [facility] [place] [address] [place] [phone] Encounter Diagnosis Nasal congestion (Final) - 12/06/17 Chronic sinusitis, unspecified (Final) - Discharge Disposition: Home or Self Care Attending Physician: Julio Melton MD Vital Signs No data available for [...]
--- OUTSIDE RECORDS SUMMARY | 2019-07-08 11:07 | XMS REPORT | Summary of Care ---
Author Author GUILLE POPE M.D. Unknown Address [facility] Phone Unavailable Care Team Providers Care Lecturer In Computer Science Name Role Phone GUILLE POPE M.D. 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 * Start : 04-Dec-2017 Active predniSONE 10 MG Oral Tablet Take 6 tabs [...] NOSTRIL EVERY DAY * Quantity: 1 Refills: 8 GUILLE POPE M.D. Start : 05-Dec-2017 Active 9.9 ML Bottle Furosemide TABS * Refills: 0 Active Reglan TABS * Refills: 0 Active Ipratropium Osteen 0.06 % Nasal Solution USE 2 SPRAYS IN EACH NOSTRIL 2-3 TIMES DAILY. * Quantity: 1 Refills: 6 GUILLE POPE M.D. Start : 02-Dec-2018 Active Allergies and Adverse Reactions Name Dates Details Penicillins (Allergy) Status: Active Past Medical History Name Dates Details History of arthritis (V13.4, Z87.39) Status: Resolved History of asthma (V12.69, Z87.09) Status: Resolved History of Depressive disorder (311, F32.9) Status: Resolved History of hypertension (V12.59, Z86.79) Status: Resolved Procedures Procedure Dates Details History of Heart Surgery Completed History of Biopsy Of Liver Completed Immunization Name Dates Details Immunizations not documented Family History Name Dates Details Family history of Allergy (995.3, T78.40XA) Comments: Family History Status: Active Social History Name Dates Details - Status: Name Dates Details Never smoker Vital Signs Date Test Result Details [id number] BP Systolic 171 mm[Hg] Status: BP Diastolic 79 mm[Hg] Status: Height 69 in Status: Weight 149 lb Status: Body Mass Index Calculated 22 kg/m2 Status: Body Surface Area Calculated 1.82 m2 Status: Heart Rate 56 /min Status: Results Date Description Value Details Results not documented Plan of Care Name Dates Details Planned Observations Planned Goals not documented Planned Encounters Appointment; GUILLE POPE M.D. On: 28-Feb-2019 8:00 Interventions Provided Medication Changes* Ipratropium Osteen 0.06 % Nasal Solution - Start Plan* 1. Will begin Atrovent nasal spray for now and stop the Flonase. Discussed surgical treatment of the septum and turbinates. He will decide Instructions Name Dates Details Instructions not documented Encounters Appointment; GUILLE POPE M.D. Encounter Diagnosis: Problem not documented On: 19-Jan-2017 9:30 Appointment; GUILLE POPE M.D. Encounter Diagnosis: Problem not documented On: 20-Jul-2017 9:30 Appointment; GUILLE POPE M.D. Encounter Diagnosis: Problem not documented On: 27-Nov-2017 9:30 Appointment; GUILLE POPE M.D. Encounter Diagnosis: Problem not documented On: 04-Dec-2017 15:45 Appointment; GUILLE POPE M.D. Encounter Diagnosis: Problem not documented On: 18-Jan-2018 14:45 Appointment; GUILLE POPE M.D. Encounter Diagnosis: Problem not documented On: 18-Feb-2018 13:45 Appointment; GUILLE POPE M.D. Encounter Diagnosis: Problem not documented On: 13-Aug-2018 14:00 Appointment; GUILLE POPE M.D. Encounter Diagnosis: Problem not documented On: 20-Aug-2018 13:30 Appointment; GUILLE POPE M.D. Encounter Diagnosis: Problem not documented On: 30-Aug-2018 13:15 Appointment; GUILLE POPE M.D. Encounter Diagnosis: Problem not documented On: 02-Dec-2018 13:00
--- OUTSIDE RECORDS SUMMARY | 2019-07-08 11:07 | XMS REPORT ---
Author Author [facility] Address Unknown Phone Unavailable Care Team Providers Care Patent Prosecution Paralegal Name Role Phone CLAIRE CHAVEZ Unavailable Unavailable Payers Payer Name Policy Type Policy Number Effective Date Expiration Date Problems This patient has no known problems. Allergies, Adverse Reactions, Alerts Allergy Name Allergy Type Status Severity Reaction(s) Onset Date Inactive Date Treating Clinician Comments Penicillins DA Active U 2019-06-04 00:00:00 grass pollen DA Active [place] 2019-06-04 00:00:00 grass pollen DA Active TX 2019-05-17 00:00:00 Penicillins DA Active U 2019-03-24 00:00:00 Penicillins DA Active U 2015-06-02 00:00:00 Medications This patient has no known medications. Results Test Description Test Time Test Comments Text Results Atomic Results Result Comments COMPREHENSIVE METABOLIC PANEL 2019-06-05 07:23:00 SODIUM (test code=NA) 141 mmol/L 136-145 POTASSIUM (test code=K) 4.6 mmol/L 3.5-5.1 CHLORIDE (test code=CL) 106.0 mmol/L 98-107 CARBON DIOXIDE (test code=CO2) 26.0 mmol/L 21-32 ANION GAP (test code=GAP) 13.6 10-20 GLUCOSE (test code=GLU) 113 mg/dL 74-106 BLOOD UREA NITROGEN (test code=BUN) 9 mg/dL 7-18 GLOMERULAR FILTRATION RATE (test code=GFR) > 60 mL/min >=60 Estimated GFR by using Modified MDRD formula.Chronic kidney disease is defined as either kidney damageor GFR <60 mL/min/1.73 m2 for >3 months. CREATININE (test code=CREAT) 0.80 mg/dL 0.7-1.3 BUN/CREATININE RATIO (test code=BUN/CREA) 11.3 10-20 TOTAL PROTEIN (test code=PROT) 6.7 gram/dL 6.4-8.2 ALBUMIN (test code=ALB) 2.8 g/dL 3.4-5.0 GLOBULIN (test code=GLOB) 3.9 gram/dL 2.7-4.2 ALBUMIN/GLOBULIN RATIO (test code=A/G) 0.7 0.75-1.50 CALCIUM (test code=CA) 8.9 mg/dL 8.5-10.1 BILIRUBIN TOTAL (test code=BILT) 0.70 mg/dL 0.0-1.0 SGOT/AST (test code=AST) 12 IUnit/L 15-37 SGPT/ALT (test code=ALT) 11 IUnit/L 12-78 ALKALINE PHOSPHATASE TOTAL (test code=ALKP) 96 IUnit/L 45-117 Note change in reference range due to change in reagent. COMPREHENSIVE METABOLIC [id number] 07:16:00* Test Item Value Reference Range Comments SODIUM (test code=NA) 141 mmol/L 136-145 POTASSIUM (test code=K) 4.6 mmol/L 3.5-5.1 CHLORIDE (test code=CL) 106.0 mmol/L 98-107 CARBON DIOXIDE (test code=CO2) mmol/L 21-32 ANION GAP (test code=GAP) 10-20 GLUCOSE (test code=GLU) mg/dL 74-106 BLOOD UREA NITROGEN (test code=BUN) mg/dL 7-18 GLOMERULAR FILTRATION RATE (test code=GFR) mL/min >=60 CREATININE (test code=CREAT) mg/dL 0.7-1.3 BUN/CREATININE RATIO (test code=BUN/CREA) 10-20 TOTAL PROTEIN (test code=PROT) gram/dL 6.4-8.2 ALBUMIN (test code=ALB) g/dL 3.4-5.0 GLOBULIN (test code=GLOB) gram/dL 2.7-4.2 ALBUMIN/GLOBULIN RATIO (test code=A/G) 0.75-1.50 CALCIUM (test code=CA) mg/dL 8.5-10.1 BILIRUBIN TOTAL (test code=BILT) mg/dL 0.0-1.0 SGOT/AST (test code=AST) IUnit/L 15-37 SGPT/ALT (test code=ALT) IUnit/L 12-78 ALKALINE PHOSPHATASE TOTAL (test code=ALKP) IUnit/L 45-117 CBC W/AUTO [id number] 07:07:00* Test Item Value Reference Range Comments WHITE BLOOD CELL (test code=WBC) 8.3 K/mm3 4.5-12.5 RED BLOOD CELL (test code=RBC) 3.04 mill/mm3 4.0-5.8 HEMOGLOBIN (test code=HGB) 8.5 gram/dL 13.0-17.5 HEMATOCRIT (test code=HCT) 27.8 % 42.0-52.0 MEAN CELL VOLUME (test code=MCV) 91.4 fL 80-98 MEAN CELL HGB (test code=MCH) 28.0 picogram 27.0-33.0 MEAN CELL HGB CONCETRATION (test code=MCHC) 30.6 gram/dL 33.0-36.0 RED CELL DISTRIBUTION WIDTH (test code=RDW) 14.7 % 11.6-16.2 RED CELL DISTRIBUTION WIDTH SD (test code=RDW-SD) 49.3 fL 37.0-51.0 PLATELET COUNT (test code=PLT) 362 K/mm3 150-450 MEAN PLATELET VOLUME (test code=MPV) 8.8 fL 6.7-11.0 NEUTROPHIL % (test code=NT%) 73.8 % 39.0-69.0 IMMATURE GRANULOCYTE % (test code=IG%) 0.5 % 0.0-5.0 LYMPHOCYTE % (test code=LY%) 14.7 % 25.0-55.0 MONOCYTE % (test code=MO%) 9.0 % 0.0-10.0 EOSINOPHIL % (test code=EO%) 1.3 % 0.0-5.0 BASOPHIL % (test code=BA%) 0.7 % 0.0-1.0 NUCLEATED RBC % (test code=NRBC%) 0.0 % 0-0 NEUTROPHIL # (test code=NT#) 6.09 K/mm3 1.8-7.7 IMMATURE GRANULOCYTE # (test code=IG#) 0.04 x10 3/uL 0-0.03 LYMPHOCYTE # (test code=LY#) 1.21 K/mm3 1.0-5.0 MONOCYTE # (test code=MO#) 0.74 K/mm3 0-0.8 EOSINOPHIL # (test code=EO#) 0.11 K/mm3 0.0-0.5 BASOPHIL # (test code=BA#) 0.06 K/mm3 0.0-0.2 NUCLEATED RBC # (test code=NRBC#) 0.00 K/mm3 0.0-0.1 MANUAL DIFF REQUIRED (test code=MDIFF) NO HGB [id number] 02:46:00* Test Item Value Reference Range Comments HEMOGLOBIN (test code=HGB) 7.9 gram/dL 13.0-17.5 HEMATOCRIT (test code=HCT) 25.5 % 42.0-52.0 FE W/TOTAL IRON BINDING CAP.2019-06-04 23:28:00* Test Item Value Reference Range Comments SERUM IRON (test code=IRON) 16 ug/dL 50-175 TOTAL IRON BINDING CAPACITY (test code=TIBC) 239 mcg/dL 250-450 IRON SATURATION (test code=FESAT) 6.69 % 13-45 BASIC METABOLIC [id number] 15:32:00* Test Item Value Reference Range Comments SODIUM (test code=NA) 141 mmol/L 136-145 POTASSIUM (test code=K) 4.0 mmol/L 3.5-5.1 CHLORIDE (test code=CL) 108.0 mmol/L 98-107 CARBON DIOXIDE (test code=CO2) 23.0 mmol/L 21-32 ANION GAP (test code=GAP) 14.0 10-20 GLUCOSE (test code=GLU) 106 mg/dL 74-106 BLOOD UREA NITROGEN (test code=BUN) 15 mg/dL 7-18 GLOMERULAR FILTRATION RATE (test code=GFR) > 60 mL/min >=60 Estimated GFR by using Modified MDRD formula.Chronic kidney disease is defined as either kidney damageor GFR <60 mL/min/1.73 m2 for >3 months. CREATININE (test code=CREAT) 0.80 mg/dL 0.7-1.3 BUN/CREATININE RATIO (test code=BUN/CREA) 18.8 10-20 CALCIUM (test code=CA) 8.4 mg/dL 8.5-10.1 CBC W/AUTO [id number] 15:30:00* Test Item Value Reference Range Comments WHITE BLOOD CELL (test code=WBC) 8.0 K/mm3 4.5-12.5 RED BLOOD CELL (test code=RBC) 2.73 mill/mm3 4.0-5.8 HEMOGLOBIN (test code=HGB) 7.7 gram/dL 13.0-17.5 HEMATOCRIT (test code=HCT) 24.8 % 42.0-52.0 MEAN CELL VOLUME (test code=MCV) 90.8 fL 80-98 MEAN CELL HGB (test code=MCH) 28.2 picogram 27.0-33.0 MEAN CELL HGB CONCETRATION (test code=MCHC) 31.0 gram/dL 33.0-36.0 RED CELL DISTRIBUTION WIDTH (test code=RDW) 14.8 % 11.6-16.2 RED CELL DISTRIBUTION WIDTH SD (test code=RDW-SD) 49.0 fL 37.0-51.0 PLATELET COUNT (test code=PLT) 345 K/mm3 150-450 MEAN PLATELET VOLUME (test code=MPV) 9.2 fL 6.7-11.0 NEUTROPHIL % (test code=NT%) 79.4 % 39.0-69.0 IMMATURE GRANULOCYTE % (test code=IG%) 0.5 % 0.0-5.0 LYMPHOCYTE % (test code=LY%) 11.5 % 25.0-55.0 MONOCYTE % (test code=MO%) 6.3 % 0.0-10.0 EOSINOPHIL % (test code=EO%) 1.8 % 0.0-5.0 BASOPHIL % (test code=BA%) 0.5 % 0.0-1.0 NUCLEATED RBC % (test code=NRBC%) 0.0 % 0-0 NEUTROPHIL # (test code=NT#) 6.34 K/mm3 1.8-7.7 IMMATURE GRANULOCYTE # (test code=IG#) 0.04 x10 3/uL 0-0.03 LYMPHOCYTE # (test code=LY#) 0.92 K/mm3 1.0-5.0 MONOCYTE # (test code=MO#) 0.50 K/mm3 0-0.8 EOSINOPHIL # (test code=EO#) 0.14 K/mm3 0.0-0.5 BASOPHIL # (test code=BA#) 0.04 K/mm3 0.0-0.2 NUCLEATED RBC # (test code=NRBC#) 0.00 K/mm3 0.0-0.1 MANUAL DIFF REQUIRED (test code=MDIFF) NO BASIC METABOLIC [id number] 15:28:00* Test Item Value Reference Range Comments SODIUM (test code=NA) 141 mmol/L 136-145 POTASSIUM (test code=K) 4.0 mmol/L 3.5-5.1 CHLORIDE (test code=CL) 108.0 mmol/L 98-107 CARBON DIOXIDE (test code=CO2) mmol/L 21-32 ANION GAP (test code=GAP) 10-20 GLUCOSE (test code=GLU) mg/dL 74-106 BLOOD UREA NITROGEN (test code=BUN) mg/dL 7-18 GLOMERULAR FILTRATION RATE (test code=GFR) mL/min >=60 CREATININE (test code=CREAT) mg/dL 0.7-1.3 BUN/CREATININE RATIO (test code=BUN/CREA) 10-20 CALCIUM (test code=CA) mg/dL 8.5-10.1 PROTHROMBIN [id number] 15:22:00* Test Item Value Reference Range Comments PROTHROMBIN TIME PATIENT (test code=PTP) 13.4 seconds 9.0-14.0 INTERNATIONAL NORMAL RATIO (test code=INR) 1.1 0.8-1.2 The therapeutic range for oral anticoagulant therapy formost indications is an international normalized ratio (INR)of between 2.0 and 3.0. The recommended therapeutic INRrange for various clinical situations is listed below: Clinical Situation INR range Pulmonary e mbolism treatment (2.0-3.0)Venous thrombosis treatmentVenous thrombosis prophylaxis (high risk surgery)Prevention of systemic embolism from: Acute myocardial infarction Valvular heart disease Atrial fibrillation Mechanical prosthetic heart valves (2.5-3.5) IS PATIENT ON ANTICOAGULANTS? NTHROMBOPLASTIN TIME [id number] 15:22:00* Test Item Value Reference Range Comments THROMBOPLASTIN TIME PARTIAL (test code=PTT) 35.6 seconds 25.0-36.5 IS PATIENT ON ANTICOAGULANTS? NCBC W/AUTO [id number] 08:25:00* Test Item Value Reference Range Comments WHITE BLOOD CELL (test code=WBC) 11.7 K/mm3 4.5-12.5 RED BLOOD CELL (test code=RBC) 3.16 mill/mm3 4.0-5.8 HEMOGLOBIN (test code=HGB) 9.2 gram/dL 13.0-17.5 HEMATOCRIT (test code=HCT) 27.4 % 42.0-52.0 MEAN CELL VOLUME (test code=MCV) 86.7 fL 80-98 MEAN CELL HGB (test code=MCH) 29.1 picogram 27.0-33.0 MEAN CELL HGB CONCETRATION (test code=MCHC) 33.6 gram/dL 33.0-36.0 RED CELL DISTRIBUTION WIDTH (test code=RDW) 13.2 % 11.6-16.2 RED CELL DISTRIBUTION WIDTH SD (test code=RDW-SD) 41.8 fL 37.0-51.0 PLATELET COUNT (test code=PLT) 279 K/mm3 150-450 MEAN PLATELET VOLUME (test code=MPV) 9.5 fL 6.7-11.0 NEUTROPHIL % (test code=NT%) 61.1 % 39.0-69.0 IMMATURE GRANULOCYTE % (test code=IG%) 3.1 % 0.0-5.0 LYMPHOCYTE % (test code=LY%) 24.3 % 25.0-55.0 MONOCYTE % (test code=MO%) 8.8 % 0.0-10.0 EOSINOPHIL % (test code=EO%) 2.1 % 0.0-5.0 BASOPHIL % (test code=BA%) 0.6 % 0.0-1.0 NUCLEATED RBC % (test code=NRBC%) 0.0 % 0-0 NEUTROPHIL # (test code=NT#) 7.16 K/mm3 1.8-7.7 IMMATURE GRANULOCYTE # (test code=IG#) 0.36 x10 3/uL 0-0.03 LYMPHOCYTE # (test code=LY#) 2.84 K/mm3 1.0-5.0 MONOCYTE # (test code=MO#) 1.03 K/mm3 0-0.8 EOSINOPHIL # (test code=EO#) 0.25 K/mm3 0.0-0.5 BASOPHIL # (test code=BA#) 0.07 K/mm3 0.0-0.2 NUCLEATED RBC # (test code=NRBC#) 0.00 K/mm3 0.0-0.1 MANUAL DIFF REQUIRED (test code=MDIFF) NO COMPREHENSIVE METABOLIC [id number] 05:13:00* Test Item Value Reference Range Comments SODIUM (test code=NA) 133 mmol/L 136-145 POTASSIUM (test code=K) 4.0 mmol/L 3.5-5.1 CHLORIDE (test code=CL) 98.0 mmol/L 98-107 CARBON DIOXIDE (test code=CO2) 30.0 mmol/L 21-32 ANION GAP (test code=GAP) 9.0 10-20 GLUCOSE (test code=GLU) 104 mg/dL 74-106 BLOOD UREA NITROGEN (test code=BUN) 23 mg/dL 7-18 GLOMERULAR FILTRATION RATE (test code=GFR) > 60 mL/min >=60 Estimated GFR by using Modified MDRD formula.Chronic kidney disease is defined as either kidney damageor GFR <60 mL/min/1.73 m2 for >3 months. CREATININE (test code=CREAT) 0.90 mg/dL 0.7-1.3 BUN/CREATININE RATIO (test code=BUN/CREA) 26.5 10-20 TOTAL PROTEIN (test code=PROT) 5.6 gram/dL 6.4-8.2 ALBUMIN (test code=ALB) 2.8 g/dL 3.4-5.0 GLOBULIN (test code=GLOB) 2.8 gram/dL 2.7-4.2 ALBUMIN/GLOBULIN RATIO (test code=A/G) 1.0 0.75-1.50 CALCIUM (test code=CA) 8.1 mg/dL 8.5-10.1 BILIRUBIN TOTAL (test code=BILT) 0.50 mg/dL 0.0-1.0 SGOT/AST (test code=AST) 14 IUnit/L 15-37 SGPT/ALT (test code=ALT) 14 IUnit/L 12-78 ALKALINE PHOSPHATASE TOTAL (test code=ALKP) 77 IUnit/L 45-117 Note change in reference range due to change in reagent. CBC W/AUTO [id number] 04:38:00* Test Item Value Reference Range Comments WHITE BLOOD CELL (test code=WBC) 10.9 K/mm3 4.5-12.5 RED BLOOD CELL (test code=RBC) 3.06 mill/mm3 4.0-5.8 HEMOGLOBIN (test code=HGB) 8.8 gram/dL 13.0-17.5 HEMATOCRIT (test code=HCT) 26.5 % 42.0-52.0 MEAN CELL VOLUME (test code=MCV) 86.6 fL 80-98 MEAN CELL HGB (test code=MCH) 28.8 picogram 27.0-33.0 MEAN CELL HGB CONCETRATION (test code=MCHC) 33.2 gram/dL 33.0-36.0 RED CELL DISTRIBUTION WIDTH (test code=RDW) 13.4 % 11.6-16.2 RED CELL DISTRIBUTION WIDTH SD (test code=RDW-SD) 41.6 fL 37.0-51.0 PLATELET COUNT (test code=PLT) 224 K/mm3 150-450 MEAN PLATELET VOLUME (test code=MPV) 9.6 fL 6.7-11.0 NEUTROPHIL % (test code=NT%) 67.3 % 39.0-69.0 IMMATURE GRANULOCYTE % (test code=IG%) 2.0 % 0.0-5.0 LYMPHOCYTE % (test code=LY%) 19.9 % 25.0-55.0 MONOCYTE % (test code=MO%) 8.7 % 0.0-10.0 EOSINOPHIL % (test code=EO%) 1.7 % 0.0-5.0 BASOPHIL % (test code=BA%) 0.4 % 0.0-1.0 NUCLEATED RBC % (test code=NRBC%) 0.0 % 0-0 NEUTROPHIL # (test code=NT#) 7.31 K/mm3 1.8-7.7 IMMATURE GRANULOCYTE # (test code=IG#) 0.22 x10 3/uL 0-0.03 LYMPHOCYTE # (test code=LY#) 2.16 K/mm3 1.0-5.0 MONOCYTE # (test code=MO#) 0.94 K/mm3 0-0.8 EOSINOPHIL # (test code=EO#) 0.19 K/mm3 0.0-0.5 BASOPHIL # (test code=BA#) 0.04 K/mm3 0.0-0.2 NUCLEATED RBC # (test code=NRBC#) 0.00 K/mm3 0.0-0.1 MANUAL DIFF REQUIRED (test code=MDIFF) NO COMPREHENSIVE METABOLIC [id number] 00:19:00* Test Item Value Reference Range Comments SODIUM (test code=NA) 140 mmol/L 136-145 RESULT VERIFIED BY REPEAT ANALYSIS POTASSIUM (test code=K) 3.4 mmol/L 3.5-5.1 CHLORIDE (test code=CL) 105.0 mmol/L 98-107 CARBON DIOXIDE (test code=CO2) 28.0 mmol/L 21-32 ANION GAP (test code=GAP) 10.4 10-20 GLUCOSE (test code=GLU) 130 mg/dL 74-106 BLOOD UREA NITROGEN (test code=BUN) 37 mg/dL 7-18 RESULT VERIFIED BY REPEAT ANALYSIS GLOMERULAR FILTRATION RATE (test code=GFR) > 60 mL/min >=60 Estimated GFR by using Modified MDRD formula.Chronic kidney disease is defined as either kidney damageor GFR <60 mL/min/1.73 m2 for >3 months. CREATININE (test code=CREAT) 0.70 mg/dL 0.7-1.3 BUN/CREATININE RATIO (test code=BUN/CREA) 52.9 10-20 TOTAL PROTEIN (test code=PROT) 6.1 gram/dL 6.4-8.2 ALBUMIN (test code=ALB) 3.0 g/dL 3.4-5.0 GLOBULIN (test code=GLOB) 3.1 gram/dL 2.7-4.2 ALBUMIN/GLOBULIN RATIO (test code=A/G) 1.0 0.75-1.50 CALCIUM (test code=CA) 8.2 mg/dL 8.5-10.1 BILIRUBIN TOTAL (test code=BILT) 0.60 mg/dL 0.0-1.0 SGOT/AST (test code=AST) 11 IUnit/L 15-37 SGPT/ALT (test code=ALT) 13 IUnit/L 12-78 ALKALINE PHOSPHATASE TOTAL (test code=ALKP) 80 IUnit/L 45-117 Note change in reference range due to change in reagent. CBC W/AUTO [id number] 23:42:00* Test Item Value Reference Range Comments WHITE BLOOD CELL (test code=WBC) 15.1 K/mm3 4.5-12.5 RED BLOOD CELL (test code=RBC) 3.20 mill/mm3 4.0-5.8 HEMOGLOBIN (test code=HGB) 9.2 gram/dL 13.0-17.5 HEMATOCRIT (test code=HCT) 28.0 % 42.0-52.0 MEAN CELL VOLUME (test code=MCV) 87.5 fL 80-98 MEAN CELL HGB (test code=MCH) 28.8 picogram 27.0-33.0 MEAN CELL HGB CONCETRATION (test code=MCHC) 32.9 gram/dL 33.0-36.0 RED CELL DISTRIBUTION WIDTH (test code=RDW) 13.5 % 11.6-16.2 RED CELL DISTRIBUTION WIDTH SD (test code=RDW-SD) 43.1 fL 37.0-51.0 PLATELET COUNT (test code=PLT) 183 K/mm3 150-450 RESULT VERIFIED BY REPEAT ANALYSIS MEAN PLATELET VOLUME (test code=MPV) 9.3 fL 6.7-11.0 NEUTROPHIL % (test code=NT%) 78.0 % 39.0-69.0 IMMATURE GRANULOCYTE % (test code=IG%) 1.4 % 0.0-5.0 LYMPHOCYTE % (test code=LY%) 12.2 % 25.0-55.0 MONOCYTE % (test code=MO%) 8.0 % 0.0-10.0 EOSINOPHIL % (test code=EO%) 0.1 % 0.0-5.0 BASOPHIL % (test code=BA%) 0.3 % 0.0-1.0 NUCLEATED RBC % (test code=NRBC%) 0.0 % 0-0 NEUTROPHIL # (test code=NT#) 11.75 K/mm3 1.8-7.7 IMMATURE GRANULOCYTE # (test code=IG#) 0.21 x10 3/uL 0-0.03 LYMPHOCYTE # (test code=LY#) 1.83 K/mm3 1.0-5.0 MONOCYTE # (test code=MO#) 1.20 K/mm3 0-0.8 EOSINOPHIL # (test code=EO#) 0.02 K/mm3 0.0-0.5 BASOPHIL # (test code=BA#) 0.04 K/mm3 0.0-0.2 NUCLEATED RBC # (test code=NRBC#) 0.00 K/mm3 0.0-0.1 HGB [id number] 10:07:00* Test Item Value Reference Range Comments HEMOGLOBIN (test code=HGB) 8.0 gram/dL 13.0-17.5 HEMATOCRIT (test code=HCT) 24.7 % 42.0-52.0 HGB [id number] 06:42:00* Test Item Value Reference Range Comments HEMOGLOBIN (test code=HGB) 7.7 gram/dL 13.0-17.5 RESULT VERIFIED BY REPEAT ANALYSIS HEMATOCRIT (test code=HCT) 23.6 % 42.0-52.0 PROTHROMBIN [id number] 01:37:00* Test Item Value Reference Range Comments PROTHROMBIN TIME PATIENT (test code=PTP) 18.1 seconds 9.0-14.0 INTERNATIONAL NORMAL RATIO (test code=INR) 1.5 0.8-1.2 The therapeutic range for oral anticoagulant therapy formost indications is an international normalized ratio (INR)of between 2.0 and 3.0. The recommended therapeutic INRrange for various clinical situations is listed below: Clinical Situation INR range Pulmonary e mbolism treatment (2.0-3.0)Venous thrombosis treatmentVenous thrombosis prophylaxis (high risk surgery)Prevention of systemic embolism from: Acute myocardial infarction Valvular heart disease Atrial fibrillation Mechanical prosthetic heart valves (2.5-3.5) IS PATIENT ON ANTICOAGULANTS? YLIST ANTICOAGULANTS pradaxaTHROMBOPLASTIN TIME [id number] 01:37:00* Test Item Value Reference Range Comments THROMBOPLASTIN TIME PARTIAL (test code=PTT) 36.0 seconds 25.0-36.5 IS PATIENT ON ANTICOAGULANTS? YLIST ANTICOAGULANTS pradaxaBASIC METABOLIC PANEL 2019-05-17 00:18:00* Test Item Value Reference Range Comments SODIUM (test code=NA) 132 mmol/L 136-145 POTASSIUM (test code=K) 4.1 mmol/L 3.5-5.1 CHLORIDE (test code=CL) 98.0 mmol/L 98-107 CARBON DIOXIDE (test code=CO2) 28.0 mmol/L 21-32 ANION GAP (test code=GAP) 10.1 10-20 GLUCOSE (test code=GLU) 185 mg/dL 74-106 BLOOD UREA NITROGEN (test code=BUN) 28 mg/dL 7-18 GLOMERULAR FILTRATION RATE (test code=GFR) 58 mL/min >=60 Estimated GFR by using Modified MDRD formula.Chronic kidney disease is defined as either kidney damageor GFR <60 mL/min/1.73 m2 for >3 months. CREATININE (test code=CREAT) 1.20 mg/dL 0.7-1.3 BUN/CREATININE RATIO (test code=BUN/CREA) 23.5 10-20 CALCIUM (test code=CA) 8.2 mg/dL 8.5-10.1 HEPATIC FUNCTION [id number] 00:18:00* Test Item Value Reference Range Comments TOTAL PROTEIN (test code=PROT) 6.9 gram/dL 6.4-8.2 ALBUMIN (test code=ALB) 3.1 g/dL 3.4-5.0 GLOBULIN (test code=GLOB) 3.8 gram/dL 2.7-4.2 ALBUMIN/GLOBULIN RATIO (test code=A/G) 0.8 0.75-1.50 BILIRUBIN TOTAL (test code=BILT) 0.50 mg/dL 0.0-1.0 BILIRUBIN DIRECT (test code=BILD) 0.15 mg/dL 0.0-0.20 SGOT/AST (test code=AST) 11 IUnit/L 15-37 SGPT/ALT (test code=ALT) 13 IUnit/L 12-78 ALKALINE PHOSPHATASE TOTAL (test code=ALKP) 94 IUnit/L 45-117 Note change in reference range due to change in reagent. BASIC METABOLIC [id number] 00:05:00* Test Item Value Reference Range Comments SODIUM (test code=NA) 132 mmol/L 136-145 POTASSIUM (test code=K) 4.1 mmol/L 3.5-5.1 CHLORIDE (test code=CL) 98.0 mmol/L 98-107 CARBON DIOXIDE (test code=CO2) mmol/L 21-32 ANION GAP (test code=GAP) 10-20 GLUCOSE (test code=GLU) mg/dL 74-106 BLOOD UREA NITROGEN (test code=BUN) mg/dL 7-18 GLOMERULAR FILTRATION RATE (test code=GFR) mL/min >=60 CREATININE (test code=CREAT) mg/dL 0.7-1.3 BUN/CREATININE RATIO (test code=BUN/CREA) 10-20 CALCIUM (test code=CA) mg/dL 8.5-10.1 HEPATIC FUNCTION [id number] 00:05:00* Test Item Value Reference Range Comments TOTAL PROTEIN (test code=PROT) gram/dL 6.4-8.2 ALBUMIN (test code=ALB) g/dL 3.4-5.0 GLOBULIN (test code=GLOB) gram/dL 2.7-4.2 ALBUMIN/GLOBULIN RATIO (test code=A/G) 0.75-1.50 BILIRUBIN TOTAL (test code=BILT) mg/dL 0.0-1.0 BILIRUBIN DIRECT (test code=BILD) mg/dL 0.0-0.20 SGOT/AST (test code=AST) IUnit/L 15-37 SGPT/ALT (test code=ALT) IUnit/L 12-78 ALKALINE PHOSPHATASE TOTAL (test code=ALKP) IUnit/L 45-117 CBC W/AUTO [id number] 23:59:00* Test Item Value Reference Range Comments WHITE BLOOD CELL (test code=WBC) 15.2 K/mm3 4.5-12.5 RED BLOOD CELL (test code=RBC) 3.53 mill/mm3 4.0-5.8 HEMOGLOBIN (test code=HGB) 10.3 gram/dL 13.0-17.5 HEMATOCRIT (test code=HCT) 31.4 % 42.0-52.0 MEAN CELL VOLUME (test code=MCV) 89.0 fL 80-98 MEAN CELL HGB (test code=MCH) 29.2 picogram 27.0-33.0 MEAN CELL HGB CONCETRATION (test code=MCHC) 32.8 gram/dL 33.0-36.0 RED CELL DISTRIBUTION WIDTH (test code=RDW) 14.1 % 11.6-16.2 RED CELL DISTRIBUTION WIDTH SD (test code=RDW-SD) 45.5 fL 37.0-51.0 PLATELET COUNT (test code=PLT) 286 K/mm3 150-450 MEAN PLATELET VOLUME (test code=MPV) 9.1 fL 6.7-11.0 NEUTROPHIL % (test code=NT%) 74.8 % 39.0-69.0 IMMATURE GRANULOCYTE % (test code=IG%) 3.3 % 0.0-5.0 LYMPHOCYTE % (test code=LY%) 12.6 % 25.0-55.0 MONOCYTE % (test code=MO%) 7.9 % 0.0-10.0 EOSINOPHIL % (test code=EO%) 0.9 % 0.0-5.0 BASOPHIL % (test code=BA%) 0.5 % 0.0-1.0 NUCLEATED RBC % (test code=NRBC%) 0.0 % 0-0 NEUTROPHIL # (test code=NT#) 11.33 K/mm3 1.8-7.7 IMMATURE GRANULOCYTE # (test code=IG#) 0.50 x10 3/uL 0-0.03 LYMPHOCYTE # (test code=LY#) 1.91 K/mm3 1.0-5.0 MONOCYTE # (test code=MO#) 1.20 K/mm3 0-0.8 EOSINOPHIL # (test code=EO#) 0.14 K/mm3 0.0-0.5 BASOPHIL # (test code=BA#) 0.08 K/mm3 0.0-0.2 NUCLEATED RBC # (test code=NRBC#) 0.00 K/mm3 0.0-0.1 MANUAL DIFF REQUIRED (test code=MDIFF) NO - NM MYOCRD SPECT R/S [id number] 13:56:00 FAX: Conner Torres MD [phone] Camps: PM St: REG FAX: Ken Portillo [phone] [facility] : 1935 Age/S: 84/M [id number] [address] [place] Unit #: [id number] Loc: [place] [address] Phys: Ken Rivera MD Acct: [id number] Dis Date: Status: REG CLI PHONE #: [phone] Exam Date: 04/30/2019 1113 FAX #: Reason: PRE OP EXAMS: CPT: [id number] NM MYOCRD SPECT R/S MULT [id number] Location of dictation: B2 Nuclear medicine stress test HISTORY:PRE OP TECHNIQUE: 10 mCi Tc-99m sestamibi was injected IV at rest. Non-gated SPECT imaging is performed. The patient is stressed with Lexiscan 0.4 mg/ 5 ml. At peak stress, 30 mCi Tc-99m sestamibi was injected IV. Gated SPECT imaging and post-process ing are accomplished. FINDINGS: Comparison is made to prior nuclea r medicine stress test dated 10/26/2015 and chest x-ray 12/27/2018. The left ventricle is normal in size. Homogeneous myocardial perfusion is observed. No significant stress defects suspicious for ischemia or i nfarct are identified. The computed calculated LVEF is 69 %. Juanis ntric wall motion is identified. No segmental wall motion abnormality is s een. Quantitative analysis is within normal limits. IMPRES BELEM: 1. Negative for evidence of significant myocardial ischemia or infarct. 2. Normal left ventricular ejection fraction and wall mot ion. at 8176 Reported and signed by: Shirley Cruz M.D. CC: Indra Kennedy MD; Ken Rivera MD Technologist: GABY Harding Transcribed Date/Time/By: 04/30/2019 (4204) :RosarioPXC Orig Print D/T: S: 04/30/2019 (9883) PAGE 1 Signed Report CBC W/AUTO [id number] 14:24:00* Test Item Value Reference Range Comments WHITE BLOOD CELL (test code=WBC) 7.5 K/mm3 3.5-11.0 RED BLOOD CELL (test code=RBC) 4.13 M/mm3 4.70-6.10 HEMOGLOBIN (test code=HGB) 12.3 G/DL 12.3-15.9 HEMATOCRIT (test code=HCT) 36.7 % 35.8-46.7 MEAN CELL VOLUME (test code=MCV) 88.9 Fl 86.3-98.9 MEAN CELL HGB (test code=MCH) 29.8 pg 28.9-34.4 MEAN CELL HGB CONCETRATION (test code=MCHC) 33.5 G/DL 32.1-34.5 RED CELL DISTRIBUTION WIDTH (test code=RDW) 15.7 SD 11.5-14.5 PLATELET COUNT (test code=PLT) 244.0 K/mm3 150-450 MEAN PLATELET VOLUME (test code=MPV) 8.80 fL 7.0-9.6 NEUTROPHIL % (test code=NT%) 63.1 % 40-76 LYMPHOCYTE % (test code=LY%) 23.8 % 20.5-51.1 MONOCYTE % (test code=MO%) 11.5 % 1.7-9.3 EOSINOPHIL % (test code=EO%) 1.2 % 0.0-6.0 BASOPHIL % (test code=BA%) 0.4 % 0.0-2.0 NEUTROPHIL # (test code=NT#) 4.70 K/mm3 1.8-7.6 LYMPHOCYTE # (test code=LY#) 1.8 K/mm3 0.6-3.0 MONOCYTE # (test code=MO#) 0.9 K/mm3 0.2-1.5 EOSINOPHIL # (test code=EO#) 0.1 K/mm3 0.0-0.4 BASOPHIL # (test code=BA#) 0.0 K/mm3 0.0-0.2 MANUAL DIFF REQUIRED (test code=MDIFF) NO DIFF/SCN CRITERIA SLIDE REVIEW CONSISTANT WITH AUTO DIFFERENTIAL. PROTHROMBIN [id number] 12:13:00* Test Item Value Reference Range Comments PT PATIENT (test code=PTP) 15.4 SECONDS 9.3-12.9 INTERNATIONAL NORMAL RATIO (test code=INR) 1.33 INR Unit 0.8-1.2 THROMBOPLASTIN TIME [id number] 12:13:00* Test Item Value Reference Range Comments THROMBOPLASTIN TIME PARTIAL (test code=PTT) 40.3 SECONDS 26-35 BASIC METABOLIC [id number] 12:05:00* Test Item Value Reference Range Comments SODIUM (test code=NA) 139 mmol/L 134-147 POTASSIUM (test code=K) 4.2 mmol/L 3.4-5.0 CHLORIDE (test code=CL) 103 mmol/L 100-108 CARBON DIOXIDE (test code=CO2) 30 mmol/L 21-32 ANION GAP (test code=GAP) 6.0 GAP calc 4.0-15.0 GLUCOSE (test code=GLU) 99 MG/DL 70-110 BLOOD UREA NITROGEN (test code=BUN) 17 MG/DL 7-18 GLOMERULAR FILTRATION RATE (test code=GFR) >=60 max estimate estGFR >60 CREATININE (test code=CREAT) 0.9 MG/DL 0.8-1.3 CALCIUM (test code=CA) 9.4 MG/DL 8.5-10.1 CBC W/AUTO [id number] 11:59:00* Test Item Value Reference Range Comments WHITE BLOOD CELL (test code=WBC) 7.5 K/mm3 3.5-11.0 RED BLOOD CELL (test code=RBC) 4.13 M/mm3 4.70-6.10 HEMOGLOBIN (test code=HGB) 12.3 G/DL 12.3-15.9 HEMATOCRIT (test code=HCT) 36.7 % 35.8-46.7 MEAN CELL VOLUME (test code=MCV) 88.9 Fl 86.3-98.9 MEAN CELL HGB (test code=MCH) 29.8 pg 28.9-34.4 MEAN CELL HGB CONCETRATION (test code=MCHC) 33.5 G/DL 32.1-34.5 RED CELL DISTRIBUTION WIDTH (test code=RDW) 15.7 SD 11.5-14.5 PLATELET COUNT (test code=PLT) 244.0 K/mm3 150-450 MEAN PLATELET VOLUME (test code=MPV) 8.80 fL 7.0-9.6 NEUTROPHIL % (test code=NT%) % 40-76 LYMPHOCYTE % (test code=LY%) % 20.5-51.1 MONOCYTE % (test code=MO%) % 1.7-9.3 EOSINOPHIL % (test code=EO%) % 0.0-6.0 BASOPHIL % (test code=BA%) % 0.0-2.0 NEUTROPHIL # (test code=NT#) K/mm3 1.8-7.6 LYMPHOCYTE # (test code=LY#) K/mm3 0.6-3.0 MONOCYTE # (test code=MO#) K/mm3 0.2-1.5 EOSINOPHIL # (test code=EO#) K/mm3 0.0-0.4 BASOPHIL # (test code=BA#) K/mm3 0.0-0.2 MANUAL DIFF REQUIRED (test code=MDIFF) DIFF/SCN CRITERIA - CT CHEST W/O [id number] 10:52:00 Name: HELENA MAURO [facility] : 1935 Age/S: 83 / M [address] [facility] Unit #: [id number] Loc: MilamJAIR [address] Phys: Joshua Granados MD Acct: [id number] Dis Date: Status: REG CLI PHONE #: [phone] Exam Date: 03/07/2019928 FAX #: [phone] Reason: ABN FINDINGON DX IMAGING OF EXAMS: CPT CODE: [id number] CT CHEST W/O CONTRAST 69308 TECHNIQUE: - CT CHEST W/O CONTRAST . This exam was performed using one or more of the following dose reduction techniques: Automated exposure control, adjustment of the mA and/ or kV according to patient size or use of iterative reconstruction technique. COMPARISON: Chest x-ray 12/27/2018 HISTORY: 83 years Male ABN FINDINGON DX IMAGING OF FINDINGS: Coarse parenchymal disease lung mcmahon bilaterally most prominent anterior midlung mcmahon and right upper lobe. There is underlying bronchiectasis within the right upper lobe process. Bilateral apical scarring and pleural thickening. Emphysema. 2 cm cyst left lobe of the liver. 4 cm cyst medial left lobe of liver partially imaged. Medial left diaphragm hernia containing fat, this diaphragm defect measures 2 cm. Series 501. Image 73. Thoracic aorta is normal for age. Small hiatal hernia. No pneumoth orax. No congestion. No bony erosive change. IMPRESSION: Coarse parenchymal disease lung mcmahon bilaterally most prominent anterior midlung mcmahon and right upper lobe. There is underlying bronchiectasis within the right upper lobe process. Bilateral apical scarring and pleural thickening. Emphysema. 2 cm cyst left lobe of the liver. 4 cm cyst medial left lobe of liver part ially imaged. PAGE 1 Signed Report (CONTINUED) Name: HELENA MAURO [facility] : 1935 Age/S: 83 / M [address] [facility]: [id number] Loc: JAIR Saleh [address] Ph s: Joshua Granados MD Acct: [id number] Dis Date: Status: REG CLI PHONE #: [phone] Exam Date: 03/07/2019928 FAX #: [phone] Reason: ABN FINDINGON DX IMAGING OF EXAMS: CPT CODE: [id number] CT CHEST W/O CONTRAST 75293 <Continued> Medial left diaphragm hernia containing fat, this diaphragm defect measures 2 cm. Series 501. Image 73. at 1052 Reported and signed by: Helena Bell M.D. CC: Conner Donnelly MD; Joshua Granados MD Technologist:RT April(R),CT CTDI: DLP: Trnscb Date/Time: 03/07/2019 (1052) [email or web address] Orig Print D/T: S: 03/07/2019 (2061) PAGE 2 Signed Report RESPIRATORY VIRUS PANEL [id number] 23:07:00* Test Item Value Reference Range Comments RSV A PCR (test code=RSV A) Negative Negative RSV B PCR (test code=RSV B) Negative Negative INFLUENZA A PCR (test code=FLUAPCR) Negative Negative INFLUENZA B PCR (test code=FLUBPCR) Negative Negative PARAINFLUENZA TYPE 1 PCR (test code=PIF1) Negative Negative PARAINFLUENZA TYPE 2 PCR (test code=PIF2) Negative Negative PARAINFLUENZA TYPE 3 PCR (test code=PIF3) Negative Negative RHINOVIRUS PCR (test code=RHINO) Negative Negative METAPNEUMOVIRUS PCR (test code=METAPNEU) Negative Negative ADENOVIRUS PCR (test code=ADENOPCR) Negative Negative Performed At: [facility] [id number] Sanjai MD Ph:[phone] COMPREHENSIVE METABOLIC [id number] 16:45:00* Test Item Value Reference Range Comments SODIUM (test code=NA) 133 mmol/L 136-145 POTASSIUM (test code=K) 3.9 mmol/L 3.5-5.1 CHLORIDE (test code=CL) 98.0 mmol/L 98-107 CARBON DIOXIDE (test code=CO2) 28.0 mmol/L 21-32 ANION GAP (test code=GAP) 10.9 10-20 GLUCOSE (test code=GLU) 118 mg/dL 74-106 BLOOD UREA NITROGEN (test code=BUN) 21 mg/dL 7-18 GLOMERULAR FILTRATION RATE (test code=GFR) > 60 mL/min >=60 Estimated GFR by using Modified MDRD formula.Chronic kidney disease is defined as either kidney damageor GFR <60 mL/min/1.73 m2 for >3 months. CREATININE (test code=CREAT) 1.00 mg/dL 0.7-1.3 BUN/CREATININE RATIO (test code=BUN/CREA) 21.9 10-20 TOTAL PROTEIN (test code=PROT) 5.8 gram/dL 6.4-8.2 ALBUMIN (test code=ALB) 3.0 g/dL 3.4-5.0 GLOBULIN (test code=GLOB) 2.8 gram/dL 2.7-4.2 ALBUMIN/GLOBULIN RATIO (test code=A/G) 1.1 0.75-1.50 CALCIUM (test code=CA) 7.9 mg/dL 8.5-10.1 BILIRUBIN TOTAL (test code=BILT) 0.30 mg/dL 0.0-1.0 SGOT/AST (test code=AST) 14 IUnit/L 15-37 SGPT/ALT (test code=ALT) 18 IUnit/L 12-78 ALKALINE PHOSPHATASE TOTAL (test code=ALKP) 81 IUnit/L 45-117 Note change in reference range due to change in reagent. COMPREHENSIVE METABOLIC [id number] 16:35:00* Test Item Value Reference Range Comments SODIUM (test code=NA) 133 mmol/L 136-145 POTASSIUM (test code=K) 3.9 mmol/L 3.5-5.1 CHLORIDE (test code=CL) 98.0 mmol/L 98-107 CARBON DIOXIDE (test code=CO2) mmol/L 21-32 ANION GAP (test code=GAP) 10-20 GLUCOSE (test code=GLU) mg/dL 74-106 BLOOD UREA NITROGEN (test code=BUN) mg/dL 7-18 GLOMERULAR FILTRATION RATE (test code=GFR) mL/min >=60 CREATININE (test code=CREAT) mg/dL 0.7-1.3 BUN/CREATININE RATIO (test code=BUN/CREA) 10-20 TOTAL PROTEIN (test code=PROT) gram/dL 6.4-8.2 ALBUMIN (test code=ALB) g/dL 3.4-5.0 GLOBULIN (test code=GLOB) gram/dL 2.7-4.2 ALBUMIN/GLOBULIN RATIO (test code=A/G) 0.75-1.50 CALCIUM (test code=CA) mg/dL 8.5-10.1 BILIRUBIN TOTAL (test code=BILT) mg/dL 0.0-1.0 SGOT/AST (test code=AST) IUnit/L 15-37 SGPT/ALT (test code=ALT) IUnit/L 12-78 ALKALINE PHOSPHATASE TOTAL (test code=ALKP) IUnit/L 45-117 [id number] 09:42:00* Test Item Value Reference Range Comments SODIUM (test code=NA) 127 mmol/L 136-145 BASIC METABOLIC [id number] 05:22:00* Test Item Value Reference Range Comments SODIUM (test code=NA) 127 mmol/L 136-145 POTASSIUM (test code=K) 4.0 mmol/L 3.5-5.1 CHLORIDE (test code=CL) 93.0 mmol/L 98-107 CARBON DIOXIDE (test code=CO2) 27.0 mmol/L 21-32 ANION GAP (test code=GAP) 11.0 10-20 GLUCOSE (test code=GLU) 106 mg/dL 74-106 BLOOD UREA NITROGEN (test code=BUN) 17 mg/dL 7-18 GLOMERULAR FILTRATION RATE (test code=GFR) > 60 mL/min >=60 Estimated GFR by using Modified MDRD formula.Chronic kidney disease is defined as either kidney damageor GFR <60 mL/min/1.73 m2 for >3 months. CREATININE (test code=CREAT) 0.80 mg/dL 0.7-1.3 BUN/CREATININE RATIO (test code=BUN/CREA) 20.1 10-20 CALCIUM (test code=CA) 8.1 mg/dL 8.5-10.1 [id number] 00:21:00* Test Item Value Reference Range Comments SODIUM (test code=NA) 123 mmol/L 136-145 Results called to [id number] by V.LAB.DAPHNE 12/30/18 0020Critical results verified and read back by Nurse? Y [id number] 20:42:00* Test Item Value Reference Range Comments SODIUM (test code=NA) 125 mmol/L 136-145 [id number] 15:58:00* Test Item Value Reference Range Comments SODIUM (test code=NA) 122 mmol/L 136-145 Results called to [id number] by V.LAB.QUR 12/29/18 1558Critical results verified and read back by Nurse? Y BASIC METABOLIC [id number] 14:54:00* Test Item Value Reference Range Comments SODIUM (test code=NA) 124 mmol/L 136-145 Results called to [id number] by V.LAB.WJC 12/29/18 1221Critical results verified and read back by Nurse? YRepeat result: 124 POTASSIUM (test code=K) 3.5 mmol/L 3.5-5.1 CHLORIDE (test code=CL) 89.0 mmol/L 98-107 CARBON DIOXIDE (test code=CO2) 26.0 mmol/L 21-32 ANION GAP (test code=GAP) 12.5 10-20 GLUCOSE (test code=GLU) 112 mg/dL 74-106 BLOOD UREA NITROGEN (test code=BUN) 13 mg/dL 7-18 GLOMERULAR FILTRATION RATE (test code=GFR) > 60 mL/min >=60 Estimated GFR by using Modified MDRD formula.Chronic kidney disease is defined as either kidney damageor GFR <60 mL/min/1.73 m2 for >3 months. CREATININE (test code=CREAT) 0.90 mg/dL 0.7-1.3 BUN/CREATININE RATIO (test code=BUN/CREA) 15.3 10-20 CALCIUM (test code=CA) 7.9 mg/dL 8.5-10.1 BASIC METABOLIC [id number] 12:22:00* Test Item Value Reference Range Comments SODIUM (test code=NA) 124 mmol/L 136-145 Results called to [id number] by CMELAB.Swyzzle 12/29/18 1221Critical results verified and read back by Nurse? Y POTASSIUM (test code=K) 3.5 mmol/L 3.5-5.1 CHLORIDE (test code=CL) 89.0 mmol/L 98-107 CARBON DIOXIDE (test code=CO2) 26.0 mmol/L 21-32 ANION GAP (test code=GAP) 12.5 10-20 GLUCOSE (test code=GLU) 112 mg/dL 74-106 BLOOD UREA NITROGEN (test code=BUN) 13 mg/dL 7-18 GLOMERULAR FILTRATION RATE (test code=GFR) > 60 mL/min >=60 Estimated GFR by using Modified MDRD formula.Chronic kidney disease is defined as either kidney damageor GFR <60 mL/min/1.73 m2 for >3 months. CREATININE (test code=CREAT) 0.90 mg/dL 0.7-1.3 BUN/CREATININE RATIO (test code=BUN/CREA) 15.3 10-20 CALCIUM (test code=CA) 7.9 mg/dL 8.5-10.1 BASIC METABOLIC [id number] 08:56:00* Test Item Value Reference Range Comments SODIUM (test code=NA) 123 mmol/L 136-145 Results called to [id number] by DuraSweeper.Swyzzle 12/29/18 0855Critical results verified and read back by Nurse? Y POTASSIUM (test code=K) 3.8 mmol/L 3.5-5.1 CHLORIDE (test code=CL) 89.0 mmol/L 98-107 CARBON DIOXIDE (test code=CO2) 25.0 mmol/L 21-32 ANION GAP (test code=GAP) 12.8 10-20 GLUCOSE (test code=GLU) 92 mg/dL 74-106 BLOOD UREA NITROGEN (test code=BUN) 12 mg/dL 7-18 GLOMERULAR FILTRATION RATE (test code=GFR) > 60 mL/min >=60 Estimated GFR by using Modified MDRD formula.Chronic kidney disease is defined as either kidney damageor GFR <60 mL/min/1.73 m2 for >3 months. CREATININE (test code=CREAT) 0.80 mg/dL 0.7-1.3 BUN/CREATININE RATIO (test code=BUN/CREA) 15.3 10-20 CALCIUM (test code=CA) 8.2 mg/dL 8.5-10.1 [id number] 08:56:00* Test Item Value Reference Range Comments PHOSPHORUS (test code=PHOS) 2.4 mg/dL 2.5-4.9 [id number] 08:56:00* Test Item Value Reference Range Comments MAGNESIUM (test code=MAG) 2.0 mg/dL 1.8-2.4 CBC W/AUTO [id number] 07:50:00* Test Item Value Reference Range Comments WHITE BLOOD CELL (test code=WBC) 10.8 K/mm3 4.5-12.5 RED BLOOD CELL (test code=RBC) 4.61 mill/mm3 4.0-5.8 HEMOGLOBIN (test code=HGB) 12.1 gram/dL 13.0-17.5 HEMATOCRIT (test code=HCT) 37.3 % 42.0-52.0 MEAN CELL VOLUME (test code=MCV) 80.9 fL 80-98 MEAN CELL HGB (test code=MCH) 26.2 picogram 27.0-33.0 MEAN CELL HGB CONCETRATION (test code=MCHC) 32.4 gram/dL 33.0-36.0 RED CELL DISTRIBUTION WIDTH (test code=RDW) 14.6 % 11.6-16.2 RED CELL DISTRIBUTION WIDTH SD (test code=RDW-SD) 42.7 fL 37.0-51.0 PLATELET COUNT (test code=PLT) 249 K/mm3 150-450 MEAN PLATELET VOLUME (test code=MPV) 8.9 fL 6.7-11.0 NEUTROPHIL % (test code=NT%) 69.9 % 39.0-69.0 IMMATURE GRANULOCYTE % (test code=IG%) 0.6 % 0.0-5.0 LYMPHOCYTE % (test code=LY%) 16.7 % 25.0-55.0 MONOCYTE % (test code=MO%) 11.7 % 0.0-10.0 EOSINOPHIL % (test code=EO%) 0.6 % 0.0-5.0 BASOPHIL % (test code=BA%) 0.5 % 0.0-1.0 NUCLEATED RBC % (test code=NRBC%) 0.0 % 0-0 NEUTROPHIL # (test code=NT#) 7.54 K/mm3 1.8-7.7 IMMATURE GRANULOCYTE # (test code=IG#) 0.07 x10 3/uL 0-0.03 LYMPHOCYTE # (test code=LY#) 1.80 K/mm3 1.0-5.0 MONOCYTE # (test code=MO#) 1.26 K/mm3 0-0.8 EOSINOPHIL # (test code=EO#) 0.06 K/mm3 0.0-0.5 BASOPHIL # (test code=BA#) 0.05 K/mm3 0.0-0.2 NUCLEATED RBC # (test code=NRBC#) 0.00 K/mm3 0.0-0.1 MANUAL DIFF REQUIRED (test code=MDIFF) NO [id number] 03:43:00* Test Item Value Reference Range Comments SODIUM (test code=NA) 123 mmol/L 136-145 Results called to [id number] by V.LAB.DAPHNE 12/29/18 0342Critical results verified and read back by Nurse? Y [id number] 22:21:00* Test Item Value Reference Range Comments SODIUM (test code=NA) 120 mmol/L 136-145 Results called to [id number] by V.LAB.QUR 12/28/18 2221Critical results verified and read back by Nurse? Y [id number] 18:57:00* Test Item Value Reference Range Comments SODIUM (test code=NA) 119 mmol/L 136-145 Results called to [id number] by V.LAB.QUR 12/28/18 1857Critical results verified and read back by Nurse? Y OSMOLALITY [id number] 15:17:00* Test Item Value Reference Range Comments OSMOLALITY SERUM (test code=OSMO) 240.5 mOsm/kg 275-295 Previously reported result: 40.5 mOsm/kgEdited by: LUZR on 12/28/18:20287512/28/18 1516: OSMO previously reported as: 40.5 L mOsm/kg OSMOLALITY [id number] 15:16:00* Test Item Value Reference Range Comments OSMOLALITY SERUM (test code=OSMO) 40.5 mOsm/kg 275-295 UR OSMOLALITY [id number] 14:49:00* Test Item Value Reference Range Comments UR OSMOLALITY RANDOM (test code=OSMOU) 124 mOsm/kg 48-962 CALCIUM [id number] 14:32:00* Test Item Value Reference Range Comments CALCIUM IONIZED (test code=AMBER) 1.06 mmol/L 1.12-1.32 [id number] 14:31:00* Test Item Value Reference Range Comments SODIUM (test code=NA) 118 mmol/L 136-145 Results called to TAMARA QCG1002id V.LAB.OA 12/28/18 1431Critical results verified and read back by Nurse? Y [id number] 10:04:00* Test Item Value Reference Range Comments SODIUM (test code=NA) 115 mmol/L 136-145 Results called to RADHA ALANISH7560by V.LAB.OA 12/28/18 1004Critical results verified and read back by Nurse? Y [id number] 09:30:00* Test Item Value Reference Range Comments SODIUM (test code=NA) 115 mmol/L 136-145 Results called to RADHA [id number] V.LAB.OA 12/28/18 0930Critical results verified and read back by Nurse? Y COMPREHENSIVE METABOLIC [id number] 09:29:00* Test Item Value Reference Range Comments SODIUM (test code=NA) 114 mmol/L 136-145 Results called to RADHA [id number] V.LAB.OA 12/28/18 0929Critical results verified and read back by Nurse? Y POTASSIUM (test code=K) 3.6 mmol/L 3.5-5.1 CHLORIDE (test code=CL) 80.0 mmol/L 98-107 CARBON DIOXIDE (test code=CO2) 22.0 mmol/L 21-32 ANION GAP (test code=GAP) 15.6 10-20 GLUCOSE (test code=GLU) 104 mg/dL 74-106 BLOOD UREA NITROGEN (test code=BUN) 8 mg/dL 7-18 GLOMERULAR FILTRATION RATE (test code=GFR) > 60 mL/min >=60 Estimated GFR by using Modified MDRD formula.Chronic kidney disease is defined as either kidney damageor GFR <60 mL/min/1.73 m2 for >3 months. CREATININE (test code=CREAT) 0.60 mg/dL 0.7-1.3 BUN/CREATININE RATIO (test code=BUN/CREA) 12.3 10-20 TOTAL PROTEIN (test code=PROT) 6.6 gram/dL 6.4-8.2 ALBUMIN (test code=ALB) 3.1 g/dL 3.4-5.0 GLOBULIN (test code=GLOB) 3.5 gram/dL 2.7-4.2 ALBUMIN/GLOBULIN RATIO (test code=A/G) 0.9 0.75-1.50 CALCIUM (test code=CA) 7.5 mg/dL 8.5-10.1 BILIRUBIN TOTAL (test code=BILT) 0.90 mg/dL 0.0-1.0 SGOT/AST (test code=AST) 23 IUnit/L 15-37 SGPT/ALT (test code=ALT) 16 IUnit/L 12-78 ALKALINE PHOSPHATASE TOTAL (test code=ALKP) 96 IUnit/L 45-117 Note change in reference range due to change in reagent. [id number] 09:29:00* Test Item Value Reference Range Comments MAGNESIUM (test code=MAG) 1.8 mg/dL 1.8-2.4 CBC W/AUTO [id number] 07:03:00* Test Item Value Reference Range Comments WHITE BLOOD CELL (test code=WBC) 20.2 K/mm3 4.5-12.5 RED BLOOD CELL (test code=RBC) 4.07 mill/mm3 4.0-5.8 HEMOGLOBIN (test code=HGB) 11.3 gram/dL 13.0-17.5 HEMATOCRIT (test code=HCT) 32.2 % 42.0-52.0 MEAN CELL VOLUME (test code=MCV) 79.1 fL 80-98 MEAN CELL HGB (test code=MCH) 27.8 picogram 27.0-33.0 MEAN CELL HGB CONCETRATION (test code=MCHC) 35.1 gram/dL 33.0-36.0 RED CELL DISTRIBUTION WIDTH (test code=RDW) 14.0 % 11.6-16.2 RED CELL DISTRIBUTION WIDTH SD (test code=RDW-SD) 40.9 fL 37.0-51.0 PLATELET COUNT (test code=PLT) 244 K/mm3 150-450 MEAN PLATELET VOLUME (test code=MPV) 9.1 fL 6.7-11.0 NEUTROPHIL % (test code=NT%) 87.1 % 39.0-69.0 IMMATURE GRANULOCYTE % (test code=IG%) 0.7 % 0.0-5.0 LYMPHOCYTE % (test code=LY%) 5.6 % 25.0-55.0 MONOCYTE % (test code=MO%) 6.4 % 0.0-10.0 EOSINOPHIL % (test code=EO%) 0.1 % 0.0-5.0 BASOPHIL % (test code=BA%) 0.1 % 0.0-1.0 NUCLEATED RBC % (test code=NRBC%) 0.0 % 0-0 NEUTROPHIL # (test code=NT#) 17.56 K/mm3 1.8-7.7 IMMATURE GRANULOCYTE # (test code=IG#) 0.14 x10 3/uL 0-0.03 LYMPHOCYTE # (test code=LY#) 1.12 K/mm3 1.0-5.0 MONOCYTE # (test code=MO#) 1.30 K/mm3 0-0.8 EOSINOPHIL # (test code=EO#) 0.02 K/mm3 0.0-0.5 BASOPHIL # (test code=BA#) 0.02 K/mm3 0.0-0.2 NUCLEATED RBC # (test code=NRBC#) 0.00 K/mm3 0.0-0.1 MANUAL DIFF REQUIRED (test code=MDIFF) NO [id number] 03:33:00* Test Item Value Reference Range Comments SODIUM (test code=NA) 115 mmol/L 136-145 Results called to [id number] by V.LAB.AG1 12/28/18 0326Critical results verified and read back by Nurse? Y PROCALCITONIN (PCT)2018-12-27 22:12:00* Test Item Value Reference Range Comments PROCALCITONIN (PCT) (test code=PROCAL) < 0.05 ng/ml Concentration Interpretation (ng/mL) <0.51 Sepsis is not likely. Local bacterial infection is possible. (LOW RISK for progression to Sepsis) 0.51 - 2.00 Sepsis is possible, but other conditions are known to elevate PCT as well. (MODERATE RISK for progression to Sepsis) > 2.00 Sepsis is likely, unless other causes are known. (HIGH RISK for progression to Severe Sepsis or Septic Shock) 10.00 High likelihood of Severe Sepsis or Septic or higher Shock. *Increased PCT levels may not always be related to systemic bacterial infection.*Low PCT levels do not automatically exclude the presence of bacterial infection.*All results should be interpreted taking into account the patients history. BASIC METABOLIC [id number] 22:04:00* Test Item Value Reference Range Comments SODIUM (test code=NA) 113 mmol/L 136-145 Results called to [id number] by V.LAB.LT 12/27/18 2204Critical results verified and read back by Nurse? Y POTASSIUM (test code=K) 4.1 mmol/L 3.5-5.1 CHLORIDE (test code=CL) 80.0 mmol/L 98-107 CARBON DIOXIDE (test code=CO2) 23.0 mmol/L 21-32 ANION GAP (test code=GAP) 14.1 10-20 GLUCOSE (test code=GLU) 119 mg/dL 74-106 BLOOD UREA NITROGEN (test code=BUN) 12 mg/dL 7-18 GLOMERULAR FILTRATION RATE (test code=GFR) > 60 mL/min >=60 Estimated GFR by using Modified MDRD formula.Chronic kidney disease is defined as either kidney damageor GFR <60 mL/min/1.73 m2 for >3 months. CREATININE (test code=CREAT) 0.80 mg/dL 0.7-1.3 BUN/CREATININE RATIO (test code=BUN/CREA) 15.4 10-20 CALCIUM (test code=CA) 7.7 mg/dL 8.5-10.1 CBC W/AUTO [id number] 21:42:00* Test Item Value Reference Range Comments WHITE BLOOD CELL (test code=WBC) 17.2 K/mm3 4.5-12.5 RED BLOOD CELL (test code=RBC) 4.41 mill/mm3 4.0-5.8 HEMOGLOBIN (test code=HGB) 11.8 gram/dL 13.0-17.5 HEMATOCRIT (test code=HCT) 35.9 % 42.0-52.0 MEAN CELL VOLUME (test code=MCV) 81.4 fL 80-98 MEAN CELL HGB (test code=MCH) 26.8 picogram 27.0-33.0 MEAN CELL HGB CONCETRATION (test code=MCHC) 32.9 gram/dL 33.0-36.0 RED CELL DISTRIBUTION WIDTH (test code=RDW) 14.3 % 11.6-16.2 RED CELL DISTRIBUTION WIDTH SD (test code=RDW-SD) 41.8 fL 37.0-51.0 PLATELET COUNT (test code=PLT) 286 K/mm3 150-450 MEAN PLATELET VOLUME (test code=MPV) 8.9 fL 6.7-11.0 NEUTROPHIL % (test code=NT%) 84.2 % 39.0-69.0 IMMATURE GRANULOCYTE % (test code=IG%) 1.6 % 0.0-5.0 LYMPHOCYTE % (test code=LY%) 8.4 % 25.0-55.0 MONOCYTE % (test code=MO%) 5.1 % 0.0-10.0 EOSINOPHIL % (test code=EO%) 0.5 % 0.0-5.0 BASOPHIL % (test code=BA%) 0.2 % 0.0-1.0 NUCLEATED RBC % (test code=NRBC%) 0.0 % 0-0 NEUTROPHIL # (test code=NT#) 14.44 K/mm3 1.8-7.7 IMMATURE GRANULOCYTE # (test code=IG#) 0.28 x10 3/uL 0-0.03 LYMPHOCYTE # (test code=LY#) 1.44 K/mm3 1.0-5.0 MONOCYTE # (test code=MO#) 0.88 K/mm3 0-0.8 EOSINOPHIL # (test code=EO#) 0.09 K/mm3 0.0-0.5 BASOPHIL # (test code=BA#) 0.04 K/mm3 0.0-0.2 NUCLEATED RBC # (test code=NRBC#) 0.00 K/mm3 0.0-0.1 MANUAL DIFF REQUIRED (test code=MDIFF) NO UR NA,[id number] 21:34:00* Test Item Value Reference Range Comments UR NA,RANDOM (test code=AJ) 95 mmol/L 20-110 SPECIMEN COMMENTS: specimen already in labSPECIMEN COMMENTS: lab-add onSPECIMEN COMMENTS: specimen in labSPECIMEN COMMENTS: lab add on SPECIMEN COMMENTS: lab ad d Renata UREA NITROGEN [id number] 21:34:00* Test Item Value Reference Range Comments UR UREA NITROGEN RANDOM (test code=UUN) 292 mg/dL 350-1000 SPECIMEN COMMENTS: specimen already in labSPECIMEN COMMENTS: lab-add onSPECIMEN COMMENTS: specimen in labSPECIMEN COMMENTS: lab add on SPECIMEN COMMENTS: lab ad d Renata CREATININE [id number] 21:34:00* Test Item Value Reference Range Comments UR CREATININE RANDOM (test code=CREATU) 30.0 mg/dL 30-125 SPECIMEN COMMENTS: specimen already in labSPECIMEN COMMENTS: lab-add onSPECIMEN COMMENTS: specimen in labSPECIMEN COMMENTS: lab add on SPECIMEN COMMENTS: lab ad d Renata NA,[id number] 21:29:00* Test Item Value Reference Range Comments UR NA,RANDOM (test code=AJ) 95 mmol/L 20-110 SPECIMEN COMMENTS: specimen already in labSPECIMEN COMMENTS: lab-add onSPECIMEN COMMENTS: specimen in labSPECIMEN COMMENTS: lab add on SPECIMEN COMMENTS: lab ad d Renata UREA NITROGEN [id number] 21:29:00* Test Item Value Reference Range Comments UR UREA NITROGEN RANDOM (test code=UUN) mg/dL 350-1000 SPECIMEN COMMENTS: specimen already in labSPECIMEN COMMENTS: lab-add onSPECIMEN COMMENTS: specimen in labSPECIMEN COMMENTS: lab add on SPECIMEN COMMENTS: lab ad d Renata CREATININE [id number] 21:29:00* Test Item Value Reference Range Comments UR CREATININE RANDOM (test code=CREATU) mg/dL 30-125 SPECIMEN COMMENTS: specimen already in labSPECIMEN COMMENTS: lab-add onSPECIMEN COMMENTS: specimen in labSPECIMEN COMMENTS: lab add on SPECIMEN COMMENTS: lab ad d [id number] 21:14:00* Test Item Value Reference Range Comments TROPONIN-I (test code=TROPI) <0.015 ng/mL 0-0.045 [id number] 21:08:00* Test Item Value Reference Range Comments SODIUM (test code=NA) 114 mmol/L 136-145 Results called to [id number] by [facility]. 12/27/188Critical results verified and read back by Nurse? Y - CT HEAD/BRAIN W/O [id number] 18:13:00 Name: HELENA MAURO [facility] : 1935 Age/S: 83 / M [address] [facility] Unit #: [id number] Loc: [place] [address] Phys: Nikky Schwartz MD Acct: [id number] Dis Date: Status: ADM IN PHONE #: [phone] Exam Date: 12/27/2018 180 FAX #: [phone] Reason: pt fell, on eloquis, vomited EXAMS: CPT CODE: [id number] CT HEAD/BRAIN W/O CONT 10367 EXAM: CT of the head without contrast; INFORMATION: Status post fall; patient is on a Eliquis; dizziness, bradycardia; TECHNIQUE: CT dose reduction protocol; 2.5 mm axial scans; IMPRESSION: 1. No change compared with the study obtained earlier today; no evidence of intra or extra- axial hemorrhage; no evidence of acute territorial infarction, no mass lesions or midline shift. 2. Small, chronic lacunar infarct in the right basal ganglia. 3. No evidence of skull fracture. 4. Extensive sinusitis and mild mastoiditis. at 1813 Reported and signed by: Dennis Zuniga M.D. CC: Godfrey Rogers; Nikky Schwartz MD; Conner Kennedy MD Technologist:JOVAN GUERRERO, RT(R),CT CTDI: DLP: Trnscb Date/Time: 12/27/2018 (1812) RosarioGRW Orig Print D/T: S: 12/27/2018 (1815) CTDI: DLP: PAGE 1 Signed Report - XR CHEST 1 [id number] 16:28:00 Name: HELENA MAURO [facility] : 1935 Age/S:83 /M [address] [facility] Unit#:[id number] Loc: HE [address] [place] [address] Phys: Nikky Schwartz MD Dis Date: PHONE #: [phone] Status: ADM IN FAX #: [phone] Exam Date: 12/27/2018 Re ason: sob, bradycardia, hyponatremia EXAMS: CPT CODE: [id number] XR CHEST 1 V 51111 EXAM: Chest x-ray, one view; INFORMATION: Shortness of breath, bradycardia, hyponatremia; FINDINGS: Compared with a study from October 22, 2018 the heart has incre ased in size; there is now mild cardiomegaly. No finding is also prominent curly B lines in the basilar portions of both lungs consistent with mild interstitial edema. No alveolar edema and no obvious effusions. Aortic calcifications. IMPRESSION: 1. Mild left heart failure, characterized by mild cardiomegaly and interstitial edema. 2. Underlying COPD. at 1628 Reported and signed by: Dennis Zuniga M.D. CC: Nikky Schwartz MD; Conner Kennedy MD Technologist: JOVAN HOOKER, RT(R),CT Trnscrpt Data: 12/27/2018 (1628) Sofy Orig Print D/T: S: 12/27/2018 (0991) PAGE 1 Signed Report URINALYSIS [id number] 16:11:00* Test Item Value Reference Range Comments UA COLOR (test code=COLU) STRAW YELLOW UA APPEARANCE (test code=APPU) CLEAR CLEAR UA GLUCOSE DIPSTICK (test code=DGLUU) NORMAL mg/dL NEGATIVE UA BILIRUBIN DIPSTICK (test code=BILU) NEGATIVE mg/dL NEGATIVE UA KETONE DIPSTICK (test code=KETU) neg mg/dL NEGATIVE UA SPECIFIC GRAVITY (test code=SGU) 1.010 1.001-1.035 UA BLOOD DIPSTICK (test code=LIGIA) 10 (Trace) Constantine/uL NEGATIVE UA PH DIPSTICK (test code=YARIEL) 7.0 5.0-8.0 UA PROTEIN DIPSTICK (test code=PROU) neg mg/dL Neg-15 UA UROBILINIOGEN DIPSTICK (test code=URO) norm mg/dL 0.0-0.2 UA NITRITE DIPSTICK (test code=[place]) NEGATIVE NEGATIVE UA LEUKOCYTE ESTERASE DIPSTICK (test code=LEUU) NEGATIVE uL NEGATIVE UA WBC (test code=WBCU) 0-5 per HPF 0-5 IN SOME URINARY TRACT INFECTIONS THERE MAY NOT BE ENOUGHWBCs IN THE URINE TO TRIGGER AN AUTOMATIC (REFLEX) URINECULTURE. A SEPERATE ORDER FOR URINE CULTURE IS RECOMMENDEDIF THERE IS STRONG SUPPORT FOR A URINARY TRACT INFECTIONCLINICALLY. UA RBC (test code=RBCU) 0-2 per HPF 0-5 UA EPITHELIAL CELLS (test code=EPIU) Rare (0-1/hpf) per HPF Few UA BACTERIA (test code=BACU) FEW per HPF NONE UA MUCUS (test code=MUCU) FEW per LPF NONE-FEW Urine Source? Clean CatchURINALYSIS [id number] 16:05:00* Test Item Value Reference Range Comments UA COLOR (test code=COLU) STRAW YELLOW UA APPEARANCE (test code=APPU) CLEAR CLEAR UA GLUCOSE DIPSTICK (test code=DGLUU) NORMAL mg/dL NEGATIVE UA BILIRUBIN DIPSTICK (test code=BILU) NEGATIVE mg/dL NEGATIVE UA KETONE DIPSTICK (test code=KETU) neg mg/dL NEGATIVE UA SPECIFIC GRAVITY (test code=SGU) 1.010 1.001-1.035 UA BLOOD DIPSTICK (test code=LIGIA) 10 (Trace) Constant[place]/uL NEGATIVE UA PH DIPSTICK (test code=YARIEL) 7.0 5.0-8.0 UA PROTEIN DIPSTICK (test code=PROU) neg mg/dL Neg-15 UA UROBILINIOGEN DIPSTICK (test code=URO) norm mg/dL 0.0-0.2 UA NITRITE DIPSTICK (test code=[place]) NEGATIVE NEGATIVE UA LEUKOCYTE ESTERASE DIPSTICK (test code=LEUU) NEGATIVE uL NEGATIVE UA WBC (test code=WBCU) per HPF 0-5 Urine Source? Clean Catch- CT HEAD/BRAIN W/O [id number] 15:44:00 Name: HEELNA MAURO [facility] : 1935 Age/S: 83 / M [address] [facility] Unit #: [id number] Loc: [place] [address] Phys: Sung Tabor Ma, MD Acct: [id number] Di s Date: Status: REG ER PHONE #: Exam Date: 12/27/2018 1511 FAX #: Reason: dizziness EXAMS: CPT CODE: [id number] CT HEAD/BRAIN W/O CONT 89598 EXAM: CT of the head with out contrast; INFORMATION: Dizziness; TECHNIQUE AND FINDINGS: CT dose reduction protocol; 2.5 mm axial scans. Ther e is no evidence of intra or extra-axial hemorrhage, mass lesions or midli ne shift. Small, chronic lacunar infarct in the lateral posterior aspect o f the right basal ganglia; otherwise, unremarkable francis/white matter differentiation. Ventricles are symmetric and of normal diameter; sulci a nd basilar cisterns are intact. Calcifications of the internal carot id and vertebral arteries. The calvarium is intact. Extensive mucosa l swelling in the maxillary and ethmoid sinuses which almost completely op acified. The right frontal sinus and the sphenoid sinus are completely opacified. There is also partial opacification of mastoid air cells. IMPRESSION: 1. No evidence of intracranial hemorrhage or a cute territorial infarction. 2. 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 3. Extensive sinusitis and mild mastoiditis. at 1544 Reporte d and signed by: Dennis Zuniga M.D. CC: Sung Tabor MD; Conner Torres MD Technologist:JOVAN GUERRERO, RT(R),CT CTDI: DLP: Trnscb Date/Time: 12/27/2018 (1545) Sofy Orig Print D/T: S: 12/27/2018 (5502) CTDI: DLP: PAGE 1 Signed Report [id number] 15:30:00* Test Item Value Reference Range Comments MAGNESIUM (test code=MAG) 1.5 mg/dL 1.6-2.3 COMPREHENSIVE METABOLIC [id number] 15:21:00* Test Item Value Reference Range Comments SODIUM (test code=NA) 112 mmol/L 135-148 Results called to COCO by [email or web address] 12/27/18 1521Critical results verified and read back by Nurse? Y POTASSIUM (test code=K) 4.2 mmol/L 3.5-5.1 CHLORIDE (test code=CL) 79 mmol/L 101-109 CARBON DIOXIDE (test code=CO2) 24.2 mmol/L 21-32 ANION GAP (test code=GAP) 13 mmol/L 10-20 GLUCOSE (test code=GLU) 130 mg/dL 74-106 BLOOD UREA NITROGEN (test code=BUN) 13 mg/dL 3-21 CREATININE (test code=CREAT) 0.90 mg/dL 0.55-1.3 BUN/CREATININE RATIO (test code=BUN/CREA) 14.4 10-20 TOTAL PROTEIN (test code=PROT) 6.9 g/dL 6.5-8.4 ALBUMIN (test code=ALB) 3.3 g/dL 3.4-4.8 GLOBULIN (test code=GLOB) 3.6 G/DL 1-10 ALBUMIN/GLOBULIN RATIO (test code=A/G) 0.9 RATIO 0.75-1.50 CALCIUM (test code=CA) 7.7 mg/dL 8.4-10.2 BILIRUBIN TOTAL (test code=BILT) 0.70 mg/dL 0.0-1.0 SGOT/AST (test code=AST) 23 U/L 6-32 SGPT/ALT (test code=ALT) 19 U/L 12-78 Note: Change in REFERENCE RANGE due to new reagent method. ALKALINE PHOSPHATASE TOTAL (test code=ALKP) 95 U/L 38-126 [id number] 15:21:00* Test Item Value Reference Range Comments TROPONIN-I (test code=TROPI) <0.015 ng/mL 0.00-0.056 CBC W/AUTO [id number] 15:08:00* Test Item Value Reference Range Comments WHITE BLOOD CELL (test code=WBC) 13.0 K/mm3 4.5-12.5 RED BLOOD CELL (test code=RBC) 4.07 mill/mm3 4.0-5.8 HEMOGLOBIN (test code=HGB) 11.3 gram/dL 13.0-17.5 HEMATOCRIT (test code=HCT) 32.6 % 42.0-52.0 MEAN CELL VOLUME (test code=MCV) 80.1 fL 80-98 MEAN CELL HGB (test code=MCH) 27.8 picogram 27.0-33.0 MEAN CELL HGB CONCETRATION (test code=MCHC) 34.7 gram/dL 33.0-36.0 RED CELL DISTRIBUTION WIDTH (test code=RDW) 14.7 % 11.6-16.2 RED CELL DISTRIBUTION WIDTH SD (test code=RDW-SD) 41.6 fL 39.2-49.5 PLATELET COUNT (test code=PLT) 271 K/mm3 150-450 MEAN PLATELET VOLUME (test code=MPV) 8.2 fL 6.7-11.0 NEUTROPHIL % (test code=NT%) 81.7 % 39.0-69.0 LYMPHOCYTE % (test code=LY%) 10.9 % 25.0-55.0 MONOCYTE % (test code=MO%) 6.8 % 0.0-10.0 EOSINOPHIL % (test code=EO%) 0.5 % 0.0-5.0 BASOPHIL % (test code=BA%) 0.1 % 0.0-1.0 NEUTROPHIL # (test code=NT#) 10.63 K/mm3 1.8-7.7 LYMPHOCYTE # (test code=LY#) 1.42 K/mm3 1.0-5.0 MONOCYTE # (test code=MO#) 0.89 K/mm3 0-0.8 EOSINOPHIL # (test code=EO#) 0.07 K/mm3 0.0-0.5 BASOPHIL # (test code=BA#) 0.01 K/mm3 0.0-0.2 MANUAL DIFF REQUIRED (test code=MDIFF) NO MODIFIED BA. SWALLOW [facility] [address] [address] Patient Name: HELENA MAURO MR #: [id number] : 1935 Age/Sex: 82/M Req #: [id number] Adm Physician: Ordered by: CLAIRE CHAVEZ MD Report #: [id number] Location: DX Room/Bed: Procedure: [id number] DX/MODIFIED BA. SWALLOW Exam Date: 02/04/18 Exam Time: 1099 REPORT STATUS: S igned PROCEDURE: X-RAY MODIFIED BARIUM SWALLOW COMPARISON: None. INDICATIONS: Dysphasia. DISCUSSION: Fluoroscopic examination was p erformed in conjunction with speech pathology, during swallowing of a variety of thin and thick liquid consistencies. CONCLUSION: No pe netration or aspiration. Please see the report from speech pathology for com plete details. Dictated by: Helena Jin M.D. on 02/04/2018 at 14:21 Electronically approved by: Helena Jin M.D. on 02/04/2018 at 14:21 Dictated By: HELENA JIN MD 142 Transcribed By: BETHANY on 02/04/18 1421 COPY TO: CLAIRE CHAVEZ MD MODIFIED BA. SWALLOW [place] [address] Patient Name: HELENA MAURO MR #: [id number] : 1935 Age/Sex: 82/M Req #: [id number] Adm Physician: Ordered by: CLAIRE CHAVEZ MD Report #: [id number] Location: DX Room/Bed: Procedure: [id number] DX/MODIFIED BA. SWALLOW Exam Date: 10/02/17 Exam Time: 1000 REPORT STATUS: S igned PROCEDURE: X-RAY MODIFIED BARIUM SWALLOW COMPARISON: None. INDICATIONS: Not provided. DISCUSSION: Fluoroscopic examination was performed in conjunction with speech pathology, during swallowing of a vari ety of thin and thick liquid consistencies. Examination showed premature sp illage over the base of the tongue, vallecula and pyriform sinuses with all c onsistencies. Penetration into the laryngeal vestibule was noted within liquid s. No aspiration. Moderate to severe follicular, and pyriform sinus residue with thin and thick, pur e and solid material. Moderate pharyngeal wall res idue following swallows of all consistencies. CONCLUSION: Mild to moderate pharyngeal dysphagia. Intermittent penetration to the level of the vocal cords. No aspiration was documented, however, highly suspected. Please see the report from speech pathology for complete details. Kelvin Lion M.D. Dictated by: Livan Lion M.D. on 10/02/2017 at 1 4:35 Electronically approved by: Livan Lion M.D. on 10/02/2017 a t 14:35 Dictated By: LIVAN LION MD 1435 Transcribed By: BETHANY on 10/02/17 1435 COPY TO: CLAIRE CHAVEZ MD
[2019-07-08 14:57] VITALS: BP 139/60
--- NOTE | 2019-07-08 21:26 | Operative Report ---
DATE OF PROCEDURE: 07/08/2019 SURGEON: Ishaan Dominguez MD PROCEDURE: EGD with polypectomy, biopsies, and esophageal dilatation. INDICATION FOR EGD: Dysphagia to solids. MEDICATION: The patient was done under MAC, please see anesthesiologist's note. PROCEDURE IN DETAIL: With the patient in left lateral decubitus position, the flexible fiberoptic Olympus gastroscope was introduced into the esophagus under direct visualization without any difficulty. There was some patchy erythema noted in the distal esophagus. There was a mild stricture noted at the GE junction that was dilated to size 52-Kazakh Leyva. The scope was then advanced with ease into the stomach. Mucosa overlying the antrum and the body revealed some patchy erythema, mild edema, and biopsies were obtained and sent to stain for H. pylori. An approximately 8 mm polyp was noted in the proximal body along the anterior wall that was removed per snare polypectomy. The pylorus was of normal contour and shape, was intubated with ease and the scope was advanced all the way to the second portion of the duodenum. The scope was then withdrawn slowly and the mucosa overlying the proximal second portion and duodenal bulb appeared to be within normal limits. The scope was then withdrawn back into the stomach and retroflexed mucosa overlying the fundus and cardia appeared to be within normal limits. The scope was then straightened out, it was subsequently withdrawn. The patient tolerated the procedure well. IMPRESSION: 1. Distal esophagitis, mild. 2. 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 3. Gastritis, biopsied, biopsies sent to stain for H. pylori. 4. Gastric polyp approximately 8 mm upper body along the anterior wall, removed per cold snare polypectomy. PLAN: 1. Follow up histology. 2. Continue Nexium 40 mg one p.o. a.c. b.i.d. Ishaan Dominguez MD [facility] /[id number] cc: Conner Kennedy MD
== END | disposition home or self-care (01) ==
LOC: OR 10:58
PROVIDERS: ATTEND Internal Medicine Gastroenterology
DX: K50.90 Crohn's disease, unspecified, without complications (principal); R13.10 Dysphagia, unspecified; K31.7 Polyp of stomach and duodenum; K29.60 Other gastritis without bleeding; K29.70 Gastritis, unspecified, without bleeding; Z88.0 Allergy status to penicillin; G47.33 Obstructive sleep apnea (adult) (pediatric); I10 Essential (primary) hypertension; I48.91 Unspecified atrial fibrillation; K21.9 Gastro-esophageal reflux disease without esophagitis; K44.9 Diaphragmatic hernia without obstruction or gangrene; K57.90 Diverticulosis of intestine, part unspecified, without perforation or abscess without bleeding; K20.8 Other esophagitis; Z68.1 Body mass index [BMI] 19.9 or less, adult; Z01.810 Encounter for preprocedural cardiovascular examination; Z01.812 Encounter for preprocedural laboratory examination; K22.2 Esophageal obstruction
CPT/HCPCS: 36415; 43239; 43450; 85025; 88305; 88312; 93005; J2704; J3010; 43251; 88304

== ENCOUNTER → 2021-01-04 | Day surgery (SDC) | payer MEDICARE, OTHER ==
[2020-12-30 11:25] LABS: BASOPHILS % 0.5 % (0.0-1.0); EOSINOPHILS # (AUTO) 0.2 (0.0-0.4); HEMATOCRIT 40.1 % (38.2-49.6); HEMOGLOBIN 12.7 g/dL (14.0-18.0); LYMPHOCYTES # (AUTO) 1.8 (1.0-3.2); LYMPHOCYTES % 22.7 % (18.0-39.1); MEAN CORPUSCULAR HEMOGLOBIN 29.7 pg (28-32); MEAN CORPUSCULAR HGB CONC 31.7 g/dL (31-35); MEAN CORPUSCULAR VOLUME 93.9 fL (81-99); MONOCYTES # (AUTO) 0.9 (0.2-0.8); MONOCYTES % 11.2 % (4.4-11.3); NEUTROPHILS # (AUTO) 4.8 (2.1-6.9); NEUTROPHILS % 61.6 % (38.7-80.0); PLATELET COUNT 170 x10e3/uL (140-360); RED BLOOD COUNT 4.27 x10e6/uL (4.3-5.7); RED CELL DISTRIBUTION WIDTH 15.4 % (11.7-14.4)
[2020-12-30 11:48] LABS: ALANINE AMINOTRANSFERASE 24 IU/L (0-55); ALBUMIN 4.1 g/dL (3.5-5.0); ALBUMIN/GLOBULIN RATIO 1.1 (0.8-2.0); ALKALINE PHOSPHATASE 97 IU/L (40-150); ANION GAP 14.3 mmol/L (8-16); BLOOD UREA NITROGEN 22 mg/dL (7-26); BUN/CREATININE RATIO 21 (6-25); CALCIUM 9.1 mg/dL (8.4-10.2); CARBON DIOXIDE 31 mmol/L (22-29); CHLORIDE 101 mmol/L (98-107); CREATININE, SERUM 1.06 mg/dL (0.72-1.25); EST GLOMERULAR FILTRATION RATE > 60 ML/MIN (60-); GLUCOSE 90 mg/dL (74-118); POTASSIUM 4.3 mmol/L (3.5-5.1); SODIUM 142 mmol/L (136-145)
[2021-01-04] VITALS (9 sets, daily range): BP systolic 117–170; BP diastolic 66–77
[~2021-01-04] VITALS: Ht 175.3 cm; Wt 63.0 kg
[~2021-01-04] MED LIST changes: +ALPRAZOLAM 0.5 MG TAB ONE; +ARNUITY ELLIP200 MCG INH; +ATIVAN0.5 MG PO; +DIGOXIN125 MCG PO; +DIOVAN80 MG PO; +DIPHENHYDRAMINE HCL 25 MG CAP ONE; +ELIQUIS2.5 MG PO; +HEPARIN SOD/SOD CHLORIDE 2,000 ML ONE; +IOPAMIDOL 370 MG/ML 200 ML INFUS..BTL INJ ONE; +LIDOCAINE HCL 2% LOCAL 20 ML VIAL ONE; +METOPROLOL TART50 MG PO; +MIDAZOLAM HCL 2 MG/2 ML VIAL ONE; -PROPOFOL IV EMULSION 10 MG/ML 50 ML VIAL ONE; +SODIUM CHLORIDE 0.9% 1000ML 1,000 ML ONE; +TORSEMIDE10 MG PO; +VERAPAMIL HCL 2.5 MG/ML 2 ML VIAL ONE
== END | disposition home or self-care (01) ==
LOC: CATH LAB 15:30
PROVIDERS: ATTEND Internal Medicine Interventional Cardiology
DX: I25.118 Atherosclerotic heart disease of native coronary artery with other forms of angina pectoris (principal); R94.39 Abnormal result of other cardiovascular function study; I11.0 Hypertensive heart disease with heart failure; I50.20 Unspecified systolic (congestive) heart failure; I48.91 Unspecified atrial fibrillation; I87.2 Venous insufficiency (chronic) (peripheral); Z01.812 Encounter for preprocedural laboratory examination; Z20.822 Contact with and (suspected) exposure to COVID-19; Z79.02 Long term (current) use of antithrombotics/antiplatelets; Z82.49 Family history of ischemic heart disease and other diseases of the circulatory system
CPT/HCPCS: 36415; 76937; 80053; 85025; 93454; C1769; C1887; J2001; J2250; J3010; J7030; Q9967; U0002; 99152

== ENCOUNTER → 2021-01-12 | Outpatient (CLI) | payer MEDICARE, OTHER ==
[~2021-01-12] MED LIST changes: -ALPRAZOLAM 0.5 MG TAB ONE; -DIPHENHYDRAMINE HCL 25 MG CAP ONE; -FENTANYL CITRATE/PF 100MCG/2 ML INJ ONE; -HEPARIN SOD/SOD CHLORIDE 2,000 ML ONE; -IOPAMIDOL 370 MG/ML 200 ML INFUS..BTL INJ ONE; -LIDOCAINE HCL 2% LOCAL 20 ML VIAL ONE; -MIDAZOLAM HCL 2 MG/2 ML VIAL ONE; -SODIUM CHLORIDE 0.9% 1000ML 1,000 ML ONE; -VERAPAMIL HCL 2.5 MG/ML 2 ML VIAL ONE
== END ==
LOC: DX 10:42
PROVIDERS: ATTEND Internal Medicine Gastroenterology
DX: K50.90 Crohn's disease, unspecified, without complications (principal); Z20.822 Contact with and (suspected) exposure to COVID-19
CPT/HCPCS: 74250; U0002

== ENCOUNTER → 2021-02-18 | Day surgery (SDC) | payer MEDICARE, OTHER ==
[2021-02-15 14:58] LABS: BASOPHILS % 0.6 % (0.0-1.0); EOSINOPHILS # (AUTO) 0.1 (0.0-0.4); HEMATOCRIT 37.2 % (38.2-49.6); LYMPHOCYTES # (AUTO) 1.4 (1.0-3.2); LYMPHOCYTES % 21.7 % (18.0-39.1); MEAN CORPUSCULAR HEMOGLOBIN 30.9 pg (28-32); MEAN CORPUSCULAR HGB CONC 32.3 g/dL (31-35); MEAN CORPUSCULAR VOLUME 95.9 fL (81-99); MONOCYTES # (AUTO) 0.6 (0.2-0.8); MONOCYTES % 9.7 % (4.4-11.3); NEUTROPHILS # (AUTO) 4.2 (2.1-6.9); NEUTROPHILS % 65.1 % (38.7-80.0); PLATELET COUNT 162 x10e3/uL (140-360); RED BLOOD COUNT 3.88 x10e6/uL (4.3-5.7); RED CELL DISTRIBUTION WIDTH 14.9 % (11.7-14.4)
[~2021-02-18] MED LIST changes: +FENTANYL CITRATE/PF 100MCG/2 ML INJ ONE; +GLUCAGON FOR INJ 1 MG VIAL ONE; +MIDAZOLAM HCL 2 MG/2 ML VIAL ONE; +PROPOFOL IV EMULSION 10 MG/ML 20 ML VIAL ONE; +SERTRALINE HCL50 MG PO
[2021-02-18 13:04] VITALS: BP 131/79
== END | disposition home or self-care (01) ==
LOC: OR 07:28
PROVIDERS: ATTEND Internal Medicine Gastroenterology
DX: K50.90 Crohn's disease, unspecified, without complications (principal); D12.2 Benign neoplasm of ascending colon; K31.7 Polyp of stomach and duodenum; K29.50 Unspecified chronic gastritis without bleeding; K21.9 Gastro-esophageal reflux disease without esophagitis; K20.90 Esophagitis, unspecified without bleeding; K57.30 Diverticulosis of large intestine without perforation or abscess without bleeding; K64.8 Other hemorrhoids; G47.33 Obstructive sleep apnea (adult) (pediatric); I25.10 Atherosclerotic heart disease of native coronary artery without angina pectoris; I10 Essential (primary) hypertension; I48.91 Unspecified atrial fibrillation; F32.9 Major depressive disorder, single episode, unspecified; F41.9 Anxiety disorder, unspecified; Z88.0 Allergy status to penicillin; Z01.810 Encounter for preprocedural cardiovascular examination; Z01.812 Encounter for preprocedural laboratory examination; Z20.822 Contact with and (suspected) exposure to COVID-19; Z79.02 Long term (current) use of antithrombotics/antiplatelets
CPT/HCPCS: 36415; 43239; 43450; 45380; 85025; 93005; J1610; J2250; J2704; J3010; U0002; 45378

== ENCOUNTER → 2021-03-21 | Outpatient (CLI) | payer MEDICARE, OTHER ==
[~2021-03-21] MED LIST changes: -FENTANYL CITRATE/PF 100MCG/2 ML INJ ONE; -GLUCAGON FOR INJ 1 MG VIAL ONE; -MIDAZOLAM HCL 2 MG/2 ML VIAL ONE; -PROPOFOL IV EMULSION 10 MG/ML 20 ML VIAL ONE
== END ==
LOC: CT 11:44
PROVIDERS: ATTEND Internal Medicine Pulmonary Disease
DX: J98.4 Other disorders of lung (principal)
CPT/HCPCS: 71250

== ENCOUNTER → 2021-06-24 | Outpatient (CLI) | payer MEDICARE, OTHER ==
[~2021-06-24] MED LIST changes: +IOPAMIDOL 370 MG/ML 200 ML INFUS..BTL INJ ONE; +SODIUM CHLORIDE 0.9% 50ML 50 ML ONE
== END ==
LOC: CT 07:34
PROVIDERS: ATTEND Internal Medicine Infectious Disease
DX: A31.0 Pulmonary mycobacterial infection (principal)
CPT/HCPCS: 71260; Q9967

== ENCOUNTER → 2021-12-05 | Outpatient (CLI) | payer MEDICARE ==
[2021-12-05 16:59] LABS: CREATININE, SERUM 1.11 mg/dL (0.72-1.25)
== END ==
LOC: CT 15:37
PROVIDERS: ATTEND Internal Medicine Infectious Disease
DX: J18.9 Pneumonia, unspecified organism (principal); A41.02 Sepsis due to Methicillin resistant Staphylococcus aureus; R10.0 Acute abdomen
CPT/HCPCS: 36415; 71260; 74177; 82565; 84520; Q9967

== ENCOUNTER 2022-04-28 09:26 | Inpatient (IN) | payer MEDICARE, OTHER ==
[~2022-04-28] VITALS: Ht 175.3 cm; Wt 65.8 kg
[~2022-04-28 09:26] MED LIST changes: -IOPAMIDOL 370 MG/ML 200 ML INFUS..BTL INJ ONE; -SODIUM CHLORIDE 0.9% 50ML 50 ML ONE
[2022-04-28] MEDS ORDERED: SODIUM CHLORIDE 0.9% 500ML 500 ML IV ONE (10:15)
[2022-04-28 11:00] LABS: BASOPHILS % 0.5 % (0.0-1.0); EOSINOPHILS # (AUTO) 0.1 (0.0-0.4); EOSINOPHILS % 0.9 % (0.0-6.0); HEMATOCRIT 34.7 % (38.2-49.6); HEMOGLOBIN 11.4 g/dL (14.0-18.0); LYMPHOCYTES # (AUTO) 0.7 (1.0-3.2); LYMPHOCYTES % 11.1 % (18.0-39.1); MEAN CORPUSCULAR HEMOGLOBIN 30.8 pg (28-32); MEAN CORPUSCULAR HGB CONC 32.9 g/dL (31-35); MEAN CORPUSCULAR VOLUME 93.8 fL (81-99); MONOCYTES # (AUTO) 0.6 (0.2-0.8); MONOCYTES % 8.3 % (4.4-11.3); NEUTROPHILS # (AUTO) 5.2 (2.1-6.9); NEUTROPHILS % 78.1 % (38.7-80.0); PLATELET COUNT 147 x10e3/uL (140-360); RED CELL DISTRIBUTION WIDTH 14.2 % (11.7-14.4)
[2022-04-28 11:09] LABS: INR 1.13; PROTHROMBIN TIME 15.5 seconds (11.9-14.5)
[2022-04-28 11:10] LABS: PARTIAL THROMBOPLASTIN TIME 38.3 seconds (23.8-35.5)
[2022-04-28 11:12] LABS: ALBUMIN 3.4 g/dL (3.5-5.0); ALBUMIN/GLOBULIN RATIO 1.1 (0.8-2.0); ANION GAP 11.6 mmol/L (8-16); CREATININE, SERUM 1.22 mg/dL (0.72-1.25); MAGNESIUM 1.5 MG/DL (1.3-2.1); POTASSIUM 3.6 mmol/L (3.5-5.1)
[2022-04-28 11:18] LABS: CREATINE KINASE MB 2.4 ng/mL (0-5.0)
[2022-04-28] MEDS: SODIUM CHLORIDE 0.9% 1000ML 1,000 ML IV SCH (12:10)
[2022-04-28] MEDS ORDERED: SODIUM CHLORIDE 0.9% 100 ML ONE (12:26)
[2022-04-28] MEDS ORDERED: IOPAMIDOL 370 MG/ML 100 ML INFUS..BTL INJ ONE ×2 (12:26→14:23)
[2022-04-28 14:07] LABS: BASOPHILS % 0.3 % (0.0-1.0); EOSINOPHILS # (AUTO) 0.1 (0.0-0.4); EOSINOPHILS % 0.9 % (0.0-6.0); HEMATOCRIT 30.1 % (38.2-49.6); HEMOGLOBIN 9.7 g/dL (14.0-18.0); LYMPHOCYTES # (AUTO) 0.7 (1.0-3.2); MEAN CORPUSCULAR HEMOGLOBIN 30.6 pg (28-32); MEAN CORPUSCULAR HGB CONC 32.2 g/dL (31-35); MONOCYTES # (AUTO) 0.6 (0.2-0.8); MONOCYTES % 9.4 % (4.4-11.3); NEUTROPHILS # (AUTO) 4.5 (2.1-6.9); NEUTROPHILS % 76.7 % (38.7-80.0); PLATELET COUNT 126 x10e3/uL (140-360); RED BLOOD COUNT 3.17 x10e6/uL (4.3-5.7); RED CELL DISTRIBUTION WIDTH 14.2 % (11.7-14.4)
[2022-04-28] MEDS ORDERED: SODIUM CHLORIDE 0.9% 1000ML 1,000 ML ONE ×2 (14:23→14:24)
[2022-04-28] MEDS ORDERED: LIDOCAINE HCL 1% LOCAL INJ 20 ML VIAL ONE (14:25)
[2022-04-28] MEDS ORDERED: MIDAZOLAM HCL 2 MG/2 ML VIAL ONE (14:38)
[2022-04-28] MEDS ORDERED: FENTANYL CITRATE/PF 100MCG/2 ML INJ ONE (14:39)
[2022-04-28 16:15] VITALS: BP 128/56
[2022-04-28 17:37] VITALS: BP 128/56
[2022-04-28] MEDS ORDERED: DIGOXIN 0.125 MG TAB PO SCH (18:30)
[2022-04-28 18:38] LABS: BASOPHILS % 0.5 % (0.0-1.0); EOSINOPHILS % 0.6 % (0.0-6.0); HEMATOCRIT 29.3 % (38.2-49.6); HEMOGLOBIN 9.4 g/dL (14.0-18.0); LYMPHOCYTES # (AUTO) 0.7 (1.0-3.2); LYMPHOCYTES % 11.2 % (18.0-39.1); MEAN CORPUSCULAR HEMOGLOBIN 30.8 pg (28-32); MEAN CORPUSCULAR HGB CONC 32.1 g/dL (31-35); MEAN CORPUSCULAR VOLUME 96.1 fL (81-99); MONOCYTES # (AUTO) 0.6 (0.2-0.8); MONOCYTES % 9.2 % (4.4-11.3); NEUTROPHILS # (AUTO) 4.9 (2.1-6.9); NEUTROPHILS % 77.1 % (38.7-80.0); PLATELET COUNT 130 x10e3/uL (140-360); RED BLOOD COUNT 3.05 x10e6/uL (4.3-5.7); RED CELL DISTRIBUTION WIDTH 14.4 % (11.7-14.4)
[2022-04-28 20:21] VITALS: BP 132/61
[2022-04-28 21:00] VITALS: BP 132/61
[2022-04-28] MEDS ORDERED: NIFEDIPINE CR 30 MG TAB PO SCH (21:00)
[2022-04-28] MEDS ORDERED: ACETAMINOPHEN 325 MG TAB PO PRN (22:15)
[2022-04-28] MEDS: ZOLPIDEM TARTRATE 5 MG TAB PO PRN (22:54)
[2022-04-28 23:36] VITALS: BP 147/59
[2022-04-29] VITALS (7 sets, daily range): BP systolic 125–152; BP diastolic 52–74
[2022-04-29 00:18] LABS: % IRON SATURATION 6 % (15-50); IRON 16 ug/dL (65-175); TOTAL IRON BINDING CAPACITY 251 ug/dL (261-478); TRANSFERRIN 179 mg/dL (174-364)
[2022-04-29] MEDS: SODIUM CHLORIDE 0.9% 1000ML 1,000 ML IV SCH (01:28)
[2022-04-29] MEDS ORDERED: SODIUM CHLORIDE 0.9% 1000ML 1,000 ML ONE (01:34)
[2022-04-29 04:38] LABS: BASOPHILS % 0.5 % (0.0-1.0); EOSINOPHILS # (AUTO) 0.1 (0.0-0.4); EOSINOPHILS % 3.2 % (0.0-6.0); HEMATOCRIT 24.4 % (38.2-49.6); LYMPHOCYTES # (AUTO) 0.9 (1.0-3.2); LYMPHOCYTES % 20.4 % (18.0-39.1); MEAN CORPUSCULAR HEMOGLOBIN 30.7 pg (28-32); MEAN CORPUSCULAR HGB CONC 32.8 g/dL (31-35); MEAN CORPUSCULAR VOLUME 93.5 fL (81-99); MONOCYTES # (AUTO) 0.6 (0.2-0.8); NEUTROPHILS # (AUTO) 2.7 (2.1-6.9); NEUTROPHILS % 61.8 % (38.7-80.0); PLATELET COUNT 130 x10e3/uL (140-360); RED BLOOD COUNT 2.61 x10e6/uL (4.3-5.7); RED CELL DISTRIBUTION WIDTH 14.3 % (11.7-14.4)
[2022-04-29 05:01] LABS: ALBUMIN 2.6 g/dL (3.5-5.0); ALBUMIN/GLOBULIN RATIO 1.1 (0.8-2.0); ANION GAP 12.7 mmol/L (8-16); CALCIUM 7.2 mg/dL (8.4-10.2); CREATININE, SERUM 0.85 mg/dL (0.72-1.25); POTASSIUM 3.7 mmol/L (3.5-5.1)
[2022-04-29] MEDS: TIOTROPIUM 18 MCG INH POWDER INH SCH (06:00)
[2022-04-29] MEDS ORDERED: METOPROLOL TARTRATE 50 MG TAB PO SCH (09:00)
[2022-04-29] MEDS ORDERED: VALSARTAN 80 MG TAB PO SCH (09:00)
[2022-04-29] MEDS ORDERED: PANTOPRAZOLE SOD 40 MG TABEC PO SCH (09:00)
[2022-04-29] MEDS ORDERED: MESALAMINE 500 MG CAPCR PO SCH (09:00)
[2022-04-29] MEDS ORDERED: SPIRIVA RESPIMAT4 GM INH (09:26)
[2022-04-29] MEDS: BUDESONIDE 3 MG PO SCH (09:30)
[2022-04-29] MEDS: COLESTIPOL HCL 1 G TAB PO SCH (09:53)
[2022-04-29] MEDS: SERTRALINE HCL 50 MG TAB PO SCH (09:53)
[2022-04-29] MEDS: MONTELUKAST SODIUM 10 MG TAB PO SCH (09:53)
[2022-04-29] MEDS: NIFEDIPINE CR 30 MG TAB PO SCH (09:54)
[2022-04-29 12:23] LABS: BASOPHILS % 0.6 % (0.0-1.0); EOSINOPHILS # (AUTO) 0.1 (0.0-0.4); EOSINOPHILS % 2.5 % (0.0-6.0); HEMATOCRIT 27.9 % (38.2-49.6); HEMOGLOBIN 8.9 g/dL (14.0-18.0); LYMPHOCYTES % 18.2 % (18.0-39.1); MEAN CORPUSCULAR HEMOGLOBIN 30.7 pg (28-32); MEAN CORPUSCULAR HGB CONC 31.9 g/dL (31-35); MEAN CORPUSCULAR VOLUME 96.2 fL (81-99); MONOCYTES # (AUTO) 0.5 (0.2-0.8); MONOCYTES % 9.5 % (4.4-11.3); NEUTROPHILS # (AUTO) 3.6 (2.1-6.9); NEUTROPHILS % 68.1 % (38.7-80.0); PLATELET COUNT 135 x10e3/uL (140-360); RED CELL DISTRIBUTION WIDTH 14.4 % (11.7-14.4)
[2022-04-29 14:16] LABS: C DIFFICILE TOXIN A&B AMP PROB NEGATIVE (NEGATIVE)
[2022-04-29 15:24] LABS: WBC,FECAL (FECAL LACTOFERRIN) NEGATIVE (NEGATIVE)
[2022-04-29 18:36] LABS: BASOPHILS % 0.5 % (0.0-1.0); EOSINOPHILS # (AUTO) 0.2 (0.0-0.4); EOSINOPHILS % 3.3 % (0.0-6.0); HEMATOCRIT 26.5 % (38.2-49.6); HEMOGLOBIN 8.7 g/dL (14.0-18.0); LYMPHOCYTES % 16.7 % (18.0-39.1); MEAN CORPUSCULAR HEMOGLOBIN 31.2 pg (28-32); MEAN CORPUSCULAR HGB CONC 32.8 g/dL (31-35); MONOCYTES # (AUTO) 0.6 (0.2-0.8); MONOCYTES % 10.7 % (4.4-11.3); NEUTROPHILS # (AUTO) 4.1 (2.1-6.9); NEUTROPHILS % 67.6 % (38.7-80.0); PLATELET COUNT 138 x10e3/uL (140-360); RED BLOOD COUNT 2.79 x10e6/uL (4.3-5.7); RED CELL DISTRIBUTION WIDTH 14.2 % (11.7-14.4)
[2022-04-29] MEDS: VALSARTAN 80 MG TAB PO SCH (20:41)
[2022-04-29] MEDS: METOPROLOL TARTRATE 50 MG TAB PO SCH (20:42)
[2022-04-29] MEDS: MESALAMINE 500 MG CAPCR PO SCH (20:43)
[2022-04-29] MEDS: ZOLPIDEM TARTRATE 5 MG TAB PO PRN (23:14)
[2022-04-29] MEDS ORDERED: CYANOCOBALAMIN INJ 1,000 MCG/ML VIAL IM ONE (23:15)
[2022-04-30] VITALS (8 sets, daily range): BP systolic 109–139; BP diastolic 60–90
[2022-04-30] MEDS ORDERED: PHYTONADIONE 10 MG/ML AMP IV ONE
[2022-04-30] MEDS ORDERED: PHYTONADIONE 10MG/ML 20 MG in SODIUM CHLORIDE 0.9% 100 ML IV ONE (00:15)
[2022-04-30 00:20] LABS: BASOPHILS % 0.5 % (0.0-1.0); EOSINOPHILS # (AUTO) 0.2 (0.0-0.4); HEMATOCRIT 25.5 % (38.2-49.6); HEMOGLOBIN 8.1 g/dL (14.0-18.0); LYMPHOCYTES % 17.2 % (18.0-39.1); MEAN CORPUSCULAR HEMOGLOBIN 30.3 pg (28-32); MEAN CORPUSCULAR HGB CONC 31.8 g/dL (31-35); MEAN CORPUSCULAR VOLUME 95.5 fL (81-99); MONOCYTES # (AUTO) 0.6 (0.2-0.8); MONOCYTES % 10.3 % (4.4-11.3); NEUTROPHILS % 67.8 % (38.7-80.0); PLATELET COUNT 128 x10e3/uL (140-360); RED BLOOD COUNT 2.67 x10e6/uL (4.3-5.7); RED CELL DISTRIBUTION WIDTH 14.4 % (11.7-14.4)
[2022-04-30 05:31] LABS: BASOPHILS % 0.7 % (0.0-1.0); EOSINOPHILS # (AUTO) 0.2 (0.0-0.4); EOSINOPHILS % 3.9 % (0.0-6.0); HEMATOCRIT 24.2 % (38.2-49.6); HEMOGLOBIN 7.9 g/dL (14.0-18.0); LYMPHOCYTES # (AUTO) 1.2 (1.0-3.2); LYMPHOCYTES % 21.7 % (18.0-39.1); MEAN CORPUSCULAR HEMOGLOBIN 30.4 pg (28-32); MEAN CORPUSCULAR HGB CONC 32.6 g/dL (31-35); MEAN CORPUSCULAR VOLUME 93.1 fL (81-99); MONOCYTES # (AUTO) 0.6 (0.2-0.8); MONOCYTES % 10.7 % (4.4-11.3); NEUTROPHILS # (AUTO) 3.3 (2.1-6.9); NEUTROPHILS % 62.1 % (38.7-80.0); PLATELET COUNT 152 x10e3/uL (140-360)
[2022-04-30] MEDS: ARNUITY ELLIPTA INH SCH (06:00)
[2022-04-30] MEDS: TIOTROPIUM 18 MCG INH POWDER INH SCH (08:05)
[2022-04-30] MEDS: BUDESONIDE 3 MG PO SCH (09:00)
[2022-04-30] MEDS ORDERED: SODIUM CHLORIDE 0.9% 100 ML ONE (09:19)
[2022-04-30] MEDS: CYANOCOBALAMIN INJ 1,000 MCG/ML VIAL IM SCH (09:25)
[2022-04-30] MEDS: COLESTIPOL HCL 1 G TAB PO SCH (09:26)
[2022-04-30] MEDS: VALSARTAN 80 MG TAB PO SCH ×2 (09:27→21:26)
[2022-04-30] MEDS: NIFEDIPINE CR 30 MG TAB PO SCH (09:28)
[2022-04-30] MEDS: MESALAMINE 500 MG CAPCR PO SCH ×2 (09:28→21:26)
[2022-04-30] MEDS: MONTELUKAST SODIUM 10 MG TAB PO SCH (09:28)
[2022-04-30] MEDS: METOPROLOL TARTRATE 50 MG TAB PO SCH ×2 (09:28→21:26)
[2022-04-30] MEDS: SERTRALINE HCL 50 MG TAB PO SCH (09:28)
[2022-04-30] MEDS: IRON SUCROSE 100 MG in SODIUM CHLORIDE 0.9% 100 ML IV SCH (11:00)
[2022-04-30 12:17] LABS: BASOPHILS % 0.4 % (0.0-1.0); EOSINOPHILS # (AUTO) 0.2 (0.0-0.4); EOSINOPHILS % 3.1 % (0.0-6.0); HEMATOCRIT 25.8 % (38.2-49.6); HEMOGLOBIN 8.3 g/dL (14.0-18.0); LYMPHOCYTES # (AUTO) 1.2 (1.0-3.2); LYMPHOCYTES % 23.7 % (18.0-39.1); MEAN CORPUSCULAR HEMOGLOBIN 30.6 pg (28-32); MEAN CORPUSCULAR HGB CONC 32.2 g/dL (31-35); MEAN CORPUSCULAR VOLUME 95.2 fL (81-99); MONOCYTES # (AUTO) 0.6 (0.2-0.8); MONOCYTES % 11.4 % (4.4-11.3); NEUTROPHILS # (AUTO) 3.2 (2.1-6.9); NEUTROPHILS % 60.6 % (38.7-80.0); PLATELET COUNT 152 x10e3/uL (140-360); RED BLOOD COUNT 2.71 x10e6/uL (4.3-5.7); RED CELL DISTRIBUTION WIDTH 14.2 % (11.7-14.4)
[2022-04-30 18:21] LABS: BASOPHILS % 0.5 % (0.0-1.0); EOSINOPHILS # (AUTO) 0.2 (0.0-0.4); EOSINOPHILS % 4.4 % (0.0-6.0); HEMATOCRIT 25.1 % (38.2-49.6); LYMPHOCYTES # (AUTO) 1.2 (1.0-3.2); LYMPHOCYTES % 21.4 % (18.0-39.1); MEAN CORPUSCULAR HEMOGLOBIN 30.4 pg (28-32); MEAN CORPUSCULAR HGB CONC 31.9 g/dL (31-35); MEAN CORPUSCULAR VOLUME 95.4 fL (81-99); MONOCYTES # (AUTO) 0.5 (0.2-0.8); MONOCYTES % 8.8 % (4.4-11.3); NEUTROPHILS # (AUTO) 3.5 (2.1-6.9); NEUTROPHILS % 63.6 % (38.7-80.0); PLATELET COUNT 154 x10e3/uL (140-360); RED BLOOD COUNT 2.63 x10e6/uL (4.3-5.7); RED CELL DISTRIBUTION WIDTH 14.4 % (11.7-14.4)
[2022-04-30] MEDS: ZOLPIDEM TARTRATE 5 MG TAB PO PRN (23:04)
[2022-05-01] VITALS: BP 152/65
[2022-05-01 00:17] LABS: BASOPHILS % 0.5 % (0.0-1.0); EOSINOPHILS # (AUTO) 0.2 (0.0-0.4); EOSINOPHILS % 4.1 % (0.0-6.0); HEMATOCRIT 24.5 % (38.2-49.6); HEMOGLOBIN 7.8 g/dL (14.0-18.0); LYMPHOCYTES # (AUTO) 1.3 (1.0-3.2); LYMPHOCYTES % 23.1 % (18.0-39.1); MEAN CORPUSCULAR HGB CONC 31.8 g/dL (31-35); MEAN CORPUSCULAR VOLUME 94.2 fL (81-99); MONOCYTES # (AUTO) 0.6 (0.2-0.8); MONOCYTES % 10.3 % (4.4-11.3); NEUTROPHILS # (AUTO) 3.4 (2.1-6.9); NEUTROPHILS % 60.8 % (38.7-80.0); PLATELET COUNT 174 x10e3/uL (140-360); RED CELL DISTRIBUTION WIDTH 14.5 % (11.7-14.4)
[2022-05-01 00:23] LABS: INR 1.07; PROTHROMBIN TIME 14.9 seconds (11.9-14.5)
[2022-05-01 04:00] VITALS: BP 126/52
[2022-05-01] MEDS: ARNUITY ELLIPTA INH SCH (06:00)
[2022-05-01 06:02] LABS: BASOPHILS % 0.6 % (0.0-1.0); EOSINOPHILS # (AUTO) 0.2 (0.0-0.4); EOSINOPHILS % 4.5 % (0.0-6.0); HEMATOCRIT 24.1 % (38.2-49.6); LYMPHOCYTES # (AUTO) 1.3 (1.0-3.2); LYMPHOCYTES % 28.3 % (18.0-39.1); MEAN CORPUSCULAR HEMOGLOBIN 30.5 pg (28-32); MEAN CORPUSCULAR HGB CONC 33.2 g/dL (31-35); MONOCYTES # (AUTO) 0.5 (0.2-0.8); NEUTROPHILS # (AUTO) 2.5 (2.1-6.9); NEUTROPHILS % 54.3 % (38.7-80.0); PLATELET COUNT 170 x10e3/uL (140-360); RED BLOOD COUNT 2.62 x10e6/uL (4.3-5.7); RED CELL DISTRIBUTION WIDTH 14.2 % (11.7-14.4)
[2022-05-01 06:23] LABS: ANION GAP 8.1 mmol/L (8-16); CALCIUM 8.3 mg/dL (8.4-10.2); CREATININE, SERUM 0.82 mg/dL (0.72-1.25); POTASSIUM 4.1 mmol/L (3.5-5.1)
[2022-05-01 08:05] VITALS: BP 144/76
[2022-05-01] MEDS: BUDESONIDE 3 MG PO SCH (09:00)
[2022-05-01] MEDS: CYANOCOBALAMIN INJ 1,000 MCG/ML VIAL IM SCH (09:11)
[2022-05-01] MEDS: COLESTIPOL HCL 1 G TAB PO SCH (09:12)
[2022-05-01] MEDS: VALSARTAN 80 MG TAB PO SCH (09:15)
[2022-05-01] MEDS: METOPROLOL TARTRATE 50 MG TAB PO SCH (09:16)
[2022-05-01] MEDS: MONTELUKAST SODIUM 10 MG TAB PO SCH (09:16)
[2022-05-01] MEDS: NIFEDIPINE CR 30 MG TAB PO SCH (09:16)
[2022-05-01] MEDS: MESALAMINE 500 MG CAPCR PO SCH (09:16)
[2022-05-01] MEDS: SERTRALINE HCL 50 MG TAB PO SCH (09:17)
[2022-05-01] MEDS: IRON SUCROSE 100 MG in SODIUM CHLORIDE 0.9% 100 ML IV SCH (10:23)
[2022-05-01] MEDS: TIOTROPIUM 18 MCG INH POWDER INH SCH (10:35)
[2022-05-01 11:36] VITALS: BP 126/60
[2022-05-01 17:04] VITALS: BP 122/58
[2022-05-01 17:07] LABS: BASOPHILS # (AUTO) 0.1 (0.0-0.1); BASOPHILS % 0.8 % (0.0-1.0); EOSINOPHILS # (AUTO) 0.3 (0.0-0.4); EOSINOPHILS % 3.7 % (0.0-6.0); HEMATOCRIT 26.8 % (38.2-49.6); HEMOGLOBIN 8.3 g/dL (14.0-18.0); LYMPHOCYTES # (AUTO) 1.6 (1.0-3.2); LYMPHOCYTES % 21.8 % (18.0-39.1); MEAN CORPUSCULAR HEMOGLOBIN 30.3 pg (28-32); MEAN CORPUSCULAR VOLUME 97.8 fL (81-99); MONOCYTES # (AUTO) 0.7 (0.2-0.8); MONOCYTES % 9.2 % (4.4-11.3); NEUTROPHILS # (AUTO) 4.7 (2.1-6.9); NEUTROPHILS % 63.1 % (38.7-80.0); PLATELET COUNT 207 x10e3/uL (140-360); RED BLOOD COUNT 2.74 x10e6/uL (4.3-5.7); RED CELL DISTRIBUTION WIDTH 14.5 % (11.7-14.4)
[2022-05-01] MEDS ORDERED: DIGOXIN 0.125 MG TAB PO SCH (18:00)
== END 2022-05-01 18:10 | disposition home or self-care (01) | DRG 357 ==
LOC: ER 09:33 → UNDOADMOB 11:53 → ERHOLD 11:53 → CATH LAB 15:03 → INTOOBSV 16:27 → MED/SURG 16:27 → OBSVTOIN 05-01 09:12
PROVIDERS: ADMIT Family Medicine; ATTEND Family Medicine
PROC: 04L Lower Arteries, Occlusion (ICD-10-PCS; principal; 2022-04-28)
PROC: B4151ZZ Fluoroscopy of Inferior Mesenteric Artery using Low Osmolar Contrast (ICD-10-PCS; 2022-04-28)
PROC: B41B1ZZ Fluoroscopy of Other Intra-Abdominal Arteries using Low Osmolar Contrast (ICD-10-PCS; 2022-04-28)
DX: K57.31 Diverticulosis of large intestine without perforation or abscess with bleeding (principal); D62 Acute posthemorrhagic anemia; K50.90 Crohn's disease, unspecified, without complications; J44.9 Chronic obstructive pulmonary disease, unspecified; E78.5 Hyperlipidemia, unspecified; I48.91 Unspecified atrial fibrillation; Z79.01 Long term (current) use of anticoagulants; Z20.822 Contact with and (suspected) exposure to COVID-19; Z79.51 Long term (current) use of inhaled steroids; Z79.899 Other long term (current) drug therapy; Z88.0 Allergy status to penicillin
CPT/HCPCS: 0223U; 36415; 74174; 74470; 75726; 76937; 80048; 80053; 82550; 82553; 82607; 82746; 83540; 83630; 83735; 84466; 84484; 85025; 85045; 85610; 85730; 86850; 86900; 86920; 87045; 87177; 87493; 94664; 94799; 99152; 99153; 99284; C1760; C1769; C1894; G0378; J1756; J2001; J2250; J3010; J3420; J3430; J7030; J7040; J7050; Q9967

== ENCOUNTER 2022-05-05 11:42 | Observation (INO) | payer MEDICARE ==
[~2022-05-05] VITALS: Ht 175.3 cm; Wt 65.8 kg
[~2022-05-05 11:42] MED LIST changes: +SPIRIVA RESPIMAT4 GM INH
[2022-05-05 12:16] LABS: BASOPHILS # (AUTO) 0.1 (0.0-0.1); BASOPHILS % 0.4 % (0.0-1.0); EOSINOPHILS # (AUTO) 0.2 (0.0-0.4); EOSINOPHILS % 1.5 % (0.0-6.0); HEMATOCRIT 29.2 % (38.2-49.6); HEMOGLOBIN 9.4 g/dL (14.0-18.0); LYMPHOCYTES # (AUTO) 2.6 (1.0-3.2); LYMPHOCYTES % 18.5 % (18.0-39.1); MEAN CORPUSCULAR HEMOGLOBIN 30.5 pg (28-32); MEAN CORPUSCULAR HGB CONC 32.2 g/dL (31-35); MEAN CORPUSCULAR VOLUME 94.8 fL (81-99); MONOCYTES % 7.3 % (4.4-11.3); NEUTROPHILS # (AUTO) 9.7 (2.1-6.9); PLATELET COUNT 338 x10e3/uL (140-360); RED BLOOD COUNT 3.08 x10e6/uL (4.3-5.7); RED CELL DISTRIBUTION WIDTH 15.6 % (11.7-14.4)
[2022-05-05 12:27] LABS: INR 1.08
[2022-05-05 12:28] LABS: PARTIAL THROMBOPLASTIN TIME 37.6 seconds (23.8-35.5)
[2022-05-05] MEDS ORDERED: SODIUM CHLORIDE 0.9% 500ML 500 ML IV ONE (12:30)
[2022-05-05 12:37] LABS: ALBUMIN 3.7 g/dL (3.5-5.0); ANION GAP 16.1 mmol/L (8-16); CALCIUM 8.1 mg/dL (8.4-10.2); CREATININE, SERUM 1.3 mg/dL (0.72-1.25); MAGNESIUM 1.4 MG/DL (1.3-2.1); POTASSIUM 3.1 mmol/L (3.5-5.1)
[2022-05-05 12:43] LABS: CREATINE KINASE MB 3.3 ng/mL (0-5.0)
[2022-05-05] MEDS ORDERED: IOPAMIDOL 370 MG/ML 100 ML INFUS..BTL INJ ONE (13:24)
[2022-05-05] MEDS ORDERED: ONDANSETRON HCL INJ 2MG/ML 2ML 2 MG/ML VIAL IV PRN (14:00)
[2022-05-05] MEDS: FAMOTIDINE 20 MG/2 ML VIAL IV SCH ×2 (14:30→21:00)
[2022-05-05 18:00] VITALS: BP 112/68
[2022-05-05 18:49] VITALS: BP 114/58
[2022-05-05] MEDS ORDERED: ZOLPIDEM TARTRATE 5 MG TAB PO PRN (19:00)
[2022-05-05 20:00] VITALS: BP 107/60
[2022-05-05 21:32] LABS: CREATINE KINASE MB 3.5 ng/mL (0-5.0)
[2022-05-05 23:59] VITALS: BP 116/50
[2022-05-06 04:04] VITALS: BP 100/44
[2022-05-06] MEDS: TIOTROPIUM 18 MCG INH POWDER INH SCH ×2 (06:00→09:26)
[2022-05-06 06:02] LABS: BASOPHILS # (AUTO) 0.1 (0.0-0.1); BASOPHILS % 0.7 % (0.0-1.0); EOSINOPHILS # (AUTO) 0.2 (0.0-0.4); EOSINOPHILS % 2.3 % (0.0-6.0); HEMATOCRIT 27.9 % (38.2-49.6); HEMOGLOBIN 9.1 g/dL (14.0-18.0); LYMPHOCYTES # (AUTO) 2.1 (1.0-3.2); LYMPHOCYTES % 24.2 % (18.0-39.1); MEAN CORPUSCULAR HEMOGLOBIN 30.5 pg (28-32); MEAN CORPUSCULAR HGB CONC 32.6 g/dL (31-35); MEAN CORPUSCULAR VOLUME 93.6 fL (81-99); MONOCYTES # (AUTO) 0.8 (0.2-0.8); MONOCYTES % 9.2 % (4.4-11.3); NEUTROPHILS # (AUTO) 5.3 (2.1-6.9); PLATELET COUNT 286 x10e3/uL (140-360); RED BLOOD COUNT 2.98 x10e6/uL (4.3-5.7); RED CELL DISTRIBUTION WIDTH 15.7 % (11.7-14.4)
[2022-05-06 06:35] LABS: ALBUMIN 3.3 g/dL (3.5-5.0); ANION GAP 15.5 mmol/L (8-16); CALCIUM 7.6 mg/dL (8.4-10.2); CHOL/HDL RATIO 3.4 (3.9-4.7); CREATININE, SERUM 1.37 mg/dL (0.72-1.25); POTASSIUM 3.5 mmol/L (3.5-5.1)
[2022-05-06 06:42] LABS: CREATINE KINASE 82 IU/L (30-200)
[2022-05-06] MEDS ORDERED: PANTOPRAZOLE SOD 40 MG TABEC PO SCH (07:30)
[2022-05-06] MEDS: FAMOTIDINE 20 MG/2 ML VIAL IV SCH (08:20)
[2022-05-06 08:49] VITALS: BP 114/66
[2022-05-06] MEDS ORDERED: MESALAMINE 500 MG CAPCR PO SCH (09:00)
[2022-05-06] MEDS ORDERED: NIFEDIPINE CR 30 MG TAB PO SCH (09:00)
[2022-05-06] MEDS ORDERED: VALSARTAN 80 MG TAB PO SCH (09:00)
[2022-05-06] MEDS ORDERED: METOPROLOL TARTRATE 50 MG TAB PO SCH (09:00)
[2022-05-06] MEDS ORDERED: MONTELUKAST SODIUM 10 MG TAB PO SCH (09:00)
[2022-05-06 09:43] VITALS: BP 114/66
[2022-05-06] MEDS ORDERED: BUDESONIDE 3 MG CAPCR PO SCH (10:00)
[2022-05-06] MEDS ORDERED: SERTRALINE HCL 50 MG TAB PO SCH (10:00)
[2022-05-06] MEDS ORDERED: TORSEMIDE 10 MG TAB PO SCH (11:00)
[2022-05-06 11:40] VITALS: BP 106/56
[2022-05-06 13:43] LABS: CREATINE KINASE MB 2.2 ng/mL (0-5.0)
[2022-05-07] MEDS ORDERED: COLESTIPOL HCL 1 G TAB PO SCH (09:00)
[2022-05-08] MEDS ORDERED: DIGOXIN 0.125 MG TAB PO SCH (09:00)
== END 2022-05-06 15:18 | disposition home or self-care (01) ==
LOC: ER 11:48 → INTOOBSV 14:05 → ERHOLD 14:05 → MED/SURG2 17:15
PROVIDERS: ADMIT Family Medicine; ATTEND Family Medicine
DX: L76.32 Postprocedural hematoma of skin and subcutaneous tissue following other procedure (principal); Y83.8 Other surgical procedures as the cause of abnormal reaction of the patient, or of later complication, without mention of misadventure at the time of the procedure; F41.9 Anxiety disorder, unspecified; I48.91 Unspecified atrial fibrillation; Z79.01 Long term (current) use of anticoagulants; K20.90 Esophagitis, unspecified without bleeding; Z20.822 Contact with and (suspected) exposure to COVID-19; K50.90 Crohn's disease, unspecified, without complications; R06.82 Tachypnea, not elsewhere classified; I12.9 Hypertensive chronic kidney disease with stage 1 through stage 4 chronic kidney disease, or unspecified chronic kidney disease; N18.30 Chronic kidney disease, stage 3 unspecified; N17.9 Acute kidney failure, unspecified
CPT/HCPCS: 0223U; 36415 ×2; 71045; 71260; 74177; 80053 ×2; 80061; 82550 ×2; 82553 ×2; 83735; 83880; 84484 ×2; 85025 ×2; 85610; 85730; 86850; 86900; 93005; 93306; 93926; 93971; 94799 ×2; 99284; C9113; G0378 ×2; Q9967; S0164

== ENCOUNTER → 2022-11-24 | Outpatient (CLI) | payer MEDICARE ==
[~2022-11-24] MED LIST changes: +DIATRIZOATE MEGL/DIATRIZOA SOD 30 ML BTL PO ONE; +IOPAMIDOL 370 MG/ML 100 ML INFUS..BTL INJ ONE
[2022-11-24 16:32] LABS: CREATININE, SERUM 1.09 mg/dL (0.72-1.25)
== END ==
LOC: CT 15:24
PROVIDERS: ATTEND Internal Medicine Gastroenterology
DX: R10.31 Right lower quadrant pain (principal)
CPT/HCPCS: 36415; 74177; 82565; 84520; Q9963; Q9967

== ENCOUNTER → 2022-12-07 | Day surgery (SDC) | payer MEDICARE ==
[2022-11-29 11:05] LABS: BASOPHILS # (AUTO) 0.1 (0.0-0.1); BASOPHILS % 0.5 % (0.0-1.0); EOSINOPHILS # (AUTO) 0.1 (0.0-0.4); EOSINOPHILS % 0.7 % (0.0-6.0); HEMATOCRIT 38.4 % (38.2-49.6); HEMOGLOBIN 12.4 g/dL (14.0-18.0); LYMPHOCYTES # (AUTO) 1.4 (1.0-3.2); LYMPHOCYTES % 13.1 % (18.0-39.1); MEAN CORPUSCULAR HEMOGLOBIN 30.5 pg (28-32); MEAN CORPUSCULAR HGB CONC 32.3 g/dL (31-35); MEAN CORPUSCULAR VOLUME 94.6 fL (81-99); MONOCYTES % 8.7 % (4.4-11.3); NEUTROPHILS # (AUTO) 8.3 (2.1-6.9); NEUTROPHILS % 75.8 % (38.7-80.0); PLATELET COUNT 210 x10e3/uL (140-360); RED BLOOD COUNT 4.06 x10e6/uL (4.3-5.7); RED CELL DISTRIBUTION WIDTH 13.9 % (11.7-14.4)
[~2022-12-07] MED LIST changes: -DIATRIZOATE MEGL/DIATRIZOA SOD 30 ML BTL PO ONE; -IOPAMIDOL 370 MG/ML 100 ML INFUS..BTL INJ ONE; +LIDOCAINE HCL 2% LOCAL INJ 5 ML SDV VIAL INJ ONE; +PROPOFOL IV EMULSION 10 MG/ML 20 ML VIAL ONE; +SIMETHICONE 40 MG/0.6 ML BTL ONE
[2022-12-07 10:15] VITALS: BP 108/55
== END | disposition home or self-care (01) ==
LOC: OR 07:25
PROVIDERS: ATTEND Internal Medicine Gastroenterology
DX: K29.70 Gastritis, unspecified, without bleeding (principal); K20.90 Esophagitis, unspecified without bleeding; K21.9 Gastro-esophageal reflux disease without esophagitis; Z86.010 Personal history of colon polyps; K50.90 Crohn's disease, unspecified, without complications; Z71.3 Dietary counseling and surveillance; G47.33 Obstructive sleep apnea (adult) (pediatric); I25.10 Atherosclerotic heart disease of native coronary artery without angina pectoris; I11.0 Hypertensive heart disease with heart failure; I50.9 Heart failure, unspecified; J45.909 Unspecified asthma, uncomplicated; F41.9 Anxiety disorder, unspecified; F32.A Depression, unspecified; Z88.0 Allergy status to penicillin; Z01.810 Encounter for preprocedural cardiovascular examination; Z01.812 Encounter for preprocedural laboratory examination; Z79.02 Long term (current) use of antithrombotics/antiplatelets; Z79.899 Other long term (current) drug therapy; Z95.0 Presence of cardiac pacemaker; Z85.820 Personal history of malignant melanoma of skin
CPT/HCPCS: 36415; 43239; 43450; 85025; 93005; C9113; J2001; J2704

== ENCOUNTER 2023-04-18 18:42 | Inpatient (IN) | payer MEDICARE, OTHER ==
[~2023-04-18] VITALS: Ht 175.3 cm; Wt 65.8 kg
[~2023-04-18 18:42] MED LIST changes: -LIDOCAINE HCL 2% LOCAL INJ 5 ML SDV VIAL INJ ONE; -PROPOFOL IV EMULSION 10 MG/ML 20 ML VIAL ONE; -SIMETHICONE 40 MG/0.6 ML BTL ONE
[2023-04-18] MEDS ORDERED: SODIUM CHLORIDE 0.9% 1000ML 1,000 ML IV STA (19:01)
[2023-04-18] MEDS ORDERED: ONDANSETRON HCL INJ 2MG/ML 2ML 2 MG/ML VIAL IV PRN (19:15)
[2023-04-18 19:18] LABS: BASOPHILS # (AUTO) 0.1 (0.0-0.1); BASOPHILS % 0.5 % (0.0-1.0); EOSINOPHILS # (AUTO) 0.1 (0.0-0.4); EOSINOPHILS % 0.4 % (0.0-6.0); HEMATOCRIT 32.9 % (38.2-49.6); HEMOGLOBIN 11.6 g/dL (14.0-18.0); LYMPHOCYTES # (AUTO) 1.6 (1.0-3.2); LYMPHOCYTES % 12.2 % (18.0-39.1); MEAN CORPUSCULAR HEMOGLOBIN 29.5 pg (28-32); MEAN CORPUSCULAR HGB CONC 35.3 g/dL (31-35); MEAN CORPUSCULAR VOLUME 83.7 fL (81-99); MONOCYTES # (AUTO) 0.8 (0.2-0.8); MONOCYTES % 5.8 % (4.4-11.3); NEUTROPHILS # (AUTO) 9.9 (2.1-6.9); NEUTROPHILS % 74.9 % (38.7-80.0); PLATELET COUNT 518 x10e3/uL (140-360); RED BLOOD COUNT 3.93 x10e6/uL (4.3-5.7); RED CELL DISTRIBUTION WIDTH 14.7 % (11.7-14.4)
[2023-04-18] MEDS ORDERED: ONDANSETRON HCL INJ 2MG/ML 2ML 2 MG/ML VIAL ONE (19:25)
[2023-04-18 19:28] LABS: INR 1.3
[2023-04-18 19:29] LABS: PARTIAL THROMBOPLASTIN TIME 37.1 seconds (23.8-35.5)
[2023-04-18 19:38] LABS: ALANINE AMINOTRANSFERASE 22 IU/L (0-55); ALBUMIN 2.8 g/dL (3.5-5.0); ALBUMIN/GLOBULIN RATIO 0.6 (0.8-2.0); ALKALINE PHOSPHATASE 392 IU/L (40-150); ANION GAP 18.1 mmol/L (8-16); BLOOD UREA NITROGEN 32 mg/dL (7-26); BUN/CREATININE RATIO 26 (6-25); CALCIUM 9.1 mg/dL (8.4-10.2); CARBON DIOXIDE 25 mmol/L (22-29); CHLORIDE 93 mmol/L (98-107); CREATINE KINASE 45 IU/L (30-200); CREATININE, SERUM 1.25 mg/dL (0.72-1.25); GLUCOSE 152 mg/dL (74-118); POTASSIUM 3.1 mmol/L (3.5-5.1); SODIUM 133 mmol/L (136-145)
[2023-04-18 19:40] VITALS: PULSE 62; RESP 16; O2SAT 100
[2023-04-18] MEDS ORDERED: IOPAMIDOL 370 MG/ML 100 ML INFUS..BTL INJ ONE (19:55)
[2023-04-18] MEDS ORDERED: POTASSIUM CHLORIDE 20 MEQ TAB CR PO STA (20:29)
[2023-04-18] MEDS ORDERED: SODIUM BICARBONATE 8.4% 50 ML VIAL IV STA (20:32)
[2023-04-18] MEDS ORDERED: SODIUM BICARBONATE 8.4% 150 ML in DEXTROSE 5% 1,000 ML IV ONE (20:45)
[2023-04-18 21:10] VITALS: BP 145/62; PULSE 72; RESP 20; TEMP 98.1; O2SAT 100
[2023-04-18 21:35] VITALS: BP 145/62; PULSE 72; RESP 20; TEMP 98.1; O2SAT 100
[2023-04-18] MEDS ORDERED: DEXTROSE 5% 1,000 ML IV ONE (22:05)
[2023-04-18] MEDS ORDERED: SODIUM BICARBONATE 8.4% SYRING 150 ML ONE (22:05)
[2023-04-18] MEDS ORDERED: SODIUM BICARBONATE 8.4% SYRING 50 ML ONE (22:50)
[2023-04-18] MEDS ORDERED: METOPROLOL TART50 MG PO (22:58)
[2023-04-18] MEDS ORDERED: POTASSIUM CHLO20 ME1 PO (22:58)
[2023-04-18] MEDS ORDERED: ELIQUIS2.5 MG PO (22:58)
[2023-04-18] MEDS ORDERED: TORSEMIDE100 MG PO (22:58)
[2023-04-18] MEDS ORDERED: ATORVASTATIN CA20 MG PO (22:58)
[2023-04-18] MEDS ORDERED: LEVALBUTEROL TA15 GM PO (23:04)
[2023-04-18] MEDS ORDERED: [UNRECOGNIZED DRUG - OTHER] (23:07)
[2023-04-18] MEDS ORDERED: DICYCLOMINE HCL10 MG PO (23:09)
[2023-04-19] VITALS (10 sets, daily range): BP systolic 113–145; BP diastolic 55–85; PULSE 56–75; RESP 16–22; TEMP 97.3–98.4; O2SAT 98–100
[2023-04-19 05:46] LABS: BASOPHILS # (AUTO) 0.1 (0.0-0.1); BASOPHILS % 0.4 % (0.0-1.0); EOSINOPHILS # (AUTO) 0.1 (0.0-0.4); EOSINOPHILS % 0.6 % (0.0-6.0); HEMATOCRIT 29.9 % (38.2-49.6); HEMOGLOBIN 10.4 g/dL (14.0-18.0); LYMPHOCYTES # (AUTO) 1.8 (1.0-3.2); LYMPHOCYTES % 13.5 % (18.0-39.1); MEAN CORPUSCULAR HEMOGLOBIN 29.4 pg (28-32); MEAN CORPUSCULAR HGB CONC 34.8 g/dL (31-35); MEAN CORPUSCULAR VOLUME 84.5 fL (81-99); MONOCYTES % 7.7 % (4.4-11.3); NEUTROPHILS # (AUTO) 9.6 (2.1-6.9); NEUTROPHILS % 71.9 % (38.7-80.0); PLATELET COUNT 485 x10e3/uL (140-360); RED BLOOD COUNT 3.54 x10e6/uL (4.3-5.7); RED CELL DISTRIBUTION WIDTH 14.9 % (11.7-14.4)
[2023-04-19 06:20] LABS: ALBUMIN 2.6 g/dL (3.5-5.0); ALBUMIN/GLOBULIN RATIO 0.6 (0.8-2.0); ANION GAP 13.6 mmol/L (8-16); CALCIUM 8.6 mg/dL (8.4-10.2); CREATININE, SERUM 0.97 mg/dL (0.72-1.25); POTASSIUM 3.6 mmol/L (3.5-5.1)
[2023-04-19] MEDS: COLESTIPOL HCL 1 G TAB PO SCH (17:19)
[2023-04-19] MEDS: VALSARTAN 80 MG TAB PO SCH (17:19)
[2023-04-19] MEDS: APIXAB 2.5 MG TABLET PO SCH (17:19)
[2023-04-19] MEDS: METOPROLOL TARTRATE 50 MG TAB PO SCH (17:19)
[2023-04-19] MEDS ORDERED: ZOLPIDEM TARTRATE 5 MG TAB PO PRN (19:15)
[2023-04-19] MEDS ORDERED: DIGOXIN 0.125 MG TAB PO SCH (21:00)
[2023-04-20 04:49] VITALS: BP_SYST 123; BP_SYST 137; BP_DIAS 52; BP_DIAS 55; PULSE 58; PULSE 84; RESP 19; RESP 20; TEMP 98.1; TEMP 98.8; O2SAT 93; O2SAT 97
[2023-04-20 05:41] LABS: BASOPHILS # (AUTO) 0.1 (0.0-0.1); BASOPHILS % 0.4 % (0.0-1.0); EOSINOPHILS # (AUTO) 0.1 (0.0-0.4); HEMATOCRIT 27.8 % (38.2-49.6); HEMOGLOBIN 9.7 g/dL (14.0-18.0); LYMPHOCYTES # (AUTO) 1.6 (1.0-3.2); LYMPHOCYTES % 14.2 % (18.0-39.1); MEAN CORPUSCULAR HEMOGLOBIN 29.3 pg (28-32); MEAN CORPUSCULAR HGB CONC 34.9 g/dL (31-35); MONOCYTES # (AUTO) 0.9 (0.2-0.8); MONOCYTES % 8.1 % (4.4-11.3); NEUTROPHILS % 70.5 % (38.7-80.0); PLATELET COUNT 461 x10e3/uL (140-360); RED BLOOD COUNT 3.31 x10e6/uL (4.3-5.7); RED CELL DISTRIBUTION WIDTH 15.4 % (11.7-14.4)
[2023-04-20 06:08] LABS: ALBUMIN 2.3 g/dL (3.5-5.0); ALBUMIN/GLOBULIN RATIO 0.6 (0.8-2.0); ANION GAP 12.7 mmol/L (8-16); CALCIUM 8.5 mg/dL (8.4-10.2); CREATININE, SERUM 0.82 mg/dL (0.72-1.25); POTASSIUM 3.7 mmol/L (3.5-5.1)
[2023-04-20 07:42] LABS: EOSINOPHILS % (MANUAL) 2 % (0-7); LYMPHOCYTES % (MANUAL) 11 % (19-48); MONOCYTES % (MANUAL) 4 % (3.4-9.0); NEUTROPHILS % (MANUAL) 83 % (40-74); PLATELET ESTIMATE ADEQUATE; PLATELET MORPHOLOGY COMMENT NORMAL; RBC MORPHOLOGY COMMENT NORMAL
[2023-04-20 08:11] VITALS: BP 134/58; PULSE 61; RESP 18; TEMP 97.6; O2SAT 98
[2023-04-20] MEDS ORDERED: ATORVASTATIN 20 MG TAB PO SCH (09:00)
[2023-04-20] MEDS ORDERED: SERTRALINE HCL 50 MG TAB PO SCH (09:00)
[2023-04-20] MEDS ORDERED: POTASSIUM CHLORIDE 20 MEQ TAB CR PO SCH (09:00)
[2023-04-20] MEDS ORDERED: NIFEDIPINE CR 30 MG TAB PO SCH (09:00)
[2023-04-20] MEDS ORDERED: MONTELUKAST SODIUM 10 MG TAB PO SCH (09:00)
[2023-04-20] MEDS ORDERED: PANTOPRAZOLE SOD 40 MG TABEC PO SCH (09:00)
[2023-04-20] MEDS ORDERED: BUDESONIDE 3 MG CAPCR PO SCH (09:00)
[2023-04-20] MEDS: VALSARTAN 80 MG TAB PO SCH ×2 (09:28→17:11)
[2023-04-20] MEDS: COLESTIPOL HCL 1 G TAB PO SCH ×2 (09:28→17:12)
[2023-04-20] MEDS: APIXAB 2.5 MG TABLET PO SCH ×2 (09:29→17:12)
[2023-04-20] MEDS: METOPROLOL TARTRATE 50 MG TAB PO SCH ×2 (09:30→17:12)
[2023-04-20] MEDS ORDERED: ONDANSETRON HCL 4 MG ORAL DISINTEGRATING TAB PO PRN (11:30)
[2023-04-20 11:46] VITALS: BP 135/58; PULSE 63; RESP 18; TEMP 97.9; O2SAT 100
[2023-04-20] MEDS ORDERED: MESALAMINE 1.2 GM PO SCH (13:00)
[2023-04-20 15:46] VITALS: BP 118/62; PULSE 60; RESP 20; TEMP 98.6; O2SAT 100
== END 2023-04-20 20:27 | disposition home or self-care (01) | DRG 442 ==
LOC: ER 18:52 → ERHOLD 19:16 → MED/SURG2 21:01
PROVIDERS: ADMIT Family Medicine; ATTEND Family Medicine
DX: K76.89 Other specified diseases of liver (principal); E87.20 Acidosis, unspecified; K50.90 Crohn's disease, unspecified, without complications; D72.829 Elevated white blood cell count, unspecified; R53.81 Other malaise; R53.1 Weakness; E86.0 Dehydration; F41.9 Anxiety disorder, unspecified; G47.00 Insomnia, unspecified; K21.00 Gastro-esophageal reflux disease with esophagitis, without bleeding; I48.91 Unspecified atrial fibrillation; K57.30 Diverticulosis of large intestine without perforation or abscess without bleeding; E11.22 Type 2 diabetes mellitus with diabetic chronic kidney disease; N18.31 Chronic kidney disease, stage 3a; I12.9 Hypertensive chronic kidney disease with stage 1 through stage 4 chronic kidney disease, or unspecified chronic kidney disease; Z85.828 Personal history of other malignant neoplasm of skin; Z79.899 Other long term (current) drug therapy; Z95.0 Presence of cardiac pacemaker; Z59.6 Low income; Z20.822 Contact with and (suspected) exposure to COVID-19
CPT/HCPCS: 0223U; 36415; 71045; 71046; 74178; 80053; 82550; 83880; 84484; 85025; 85610; 85730; 93005; 94799; 99284; J2405; J7030; J7070; Q9967

== ENCOUNTER → 2024-06-19 | Outpatient (REF) | payer MEDICARE, OTHER ==
[~2024-06-19] MED LIST changes: +ATORVASTATIN CA20 MG PO; +IOPAMIDOL 370 MG/ML 100 ML INFUS..BTL INJ ONE; +LEVALBUTEROL TA15 GM PO; +POTASSIUM CHLO20 ME1 PO; +TORSEMIDE100 MG PO; +[UNRECOGNIZED DRUG - OTHER]
[2024-06-19 14:59] LABS: CREATININE, SERUM 1.1 mg/dL (0.72-1.25)
== END ==
LOC: CT 14:04
PROVIDERS: ATTEND Nurse Practitioner
DX: R10.31 Right lower quadrant pain (principal)
CPT/HCPCS: 36415; 74177; 82565; 84520; Q9967

== ENCOUNTER → 2024-10-17 | Outpatient (REF) | payer MEDICARE, OTHER ==
[~2024-10-17] MED LIST changes: -IOPAMIDOL 370 MG/ML 100 ML INFUS..BTL INJ ONE
== END ==
LOC: DX 08:12
PROVIDERS: ATTEND Nurse Practitioner
DX: R10.9 Unspecified abdominal pain (principal); K29.61 Other gastritis with bleeding; K86.89 Other specified diseases of pancreas; Z87.19 Personal history of other diseases of the digestive system
CPT/HCPCS: 74250